=== PATIENT | female | born 1960 | race African-American/Black ===

== ENCOUNTER 2017-12-27 11:02 | Inpatient (IN) ==
[2017-12-27] MEDS ORDERED: methylPREDNISolone SOD SUC 125 MG/2 ML VIAL IV STA (11:43)
[2017-12-27] MEDS ORDERED: ALBUTEROL 2.5 MG/3 ML NEB RESP TX STA (11:43)
[2017-12-27] MEDS ORDERED: methylPREDNISolone SOD SUC 125 MG/2 ML VIAL ONE ×2 (11:59)
[2017-12-27 12:02] LABS: Basophils # 0.1 10*3/uL (0.0-0.2); Basophils % 0.5 % (0.0-0.8); Eosinophils # 0.2 10*3/uL (0.0-0.87); Eosinophils % 2.2 % (0.00-10.9); Hematocrit 36.8 VOL% (35.7-47.0); Hemoglobin 11.9 GM/DL (12.0-16.0); Immature Granulocytes % 0.4 %; Immature Granulocytes Absolute 0.04 #; Lymphocytes # 1.9 10*3/uL (1.4-4.0); Lymphocytes % 17.9 % (21.3-54.2); Mean Corpuscular HGB Conc 32.3 GM/DL (32-36); Mean Corpuscular Hemoglobin 27 PG (27-34); Mean Platelet Volume 10.1 FL (9.6-12.0); Monocytes # 0.8 10*3/uL (0.11-0.8); Monocytes % 7.8 % (1.7-12.7); Neutrophils # 7.5 10*3/uL (1.4-7.4); Neutrophils % 71.2 % (38.7-73.9); Platelet Count 322 T/CUMM (130-400); Red Blood Count 4.49 MC/CUMM (3.8-5.5); Red Cell Distribution Width 15.8 % (9.3-17.3); White Blood Count 10.6 T/CUMM (4-12)
[2017-12-27] MEDS ORDERED: IPRATROPIUM 500 MCG/2.5 ML NEB RESP TX STA (13:44)
[2017-12-27] MEDS ORDERED: DEXTROSE 50% 25 GM/50 ML VIAL IV PRN (15:51)
[2017-12-27] MEDS ORDERED: GLUCAGON 1 MG VIAL IM PRN (15:51)
[2017-12-27] MEDS ORDERED: ACETAMINOPHEN 325 MG TABLET PO PRN (15:51)
[2017-12-27 16:04] LABS: Calcium 9.7 MG/DL (8.5-10.1); Osmolality,Calculated 274.1 MOS/KG (273-304); Potassium 5.3 MMOL/L (3.5-5.1)
[2017-12-27] MEDS ORDERED: ALBUTEROL 2.5 MG/3 ML NEB RESP TX PRN (16:30)
[2017-12-27] MEDS ORDERED: ALBUTEROL 2.5 MG/3 ML NEB RESP TX SCH (17:00)
[2017-12-27] MEDS: INSULIN REGULAR 100 UNIT/ML SUBCUT SCH ×2 (17:11→20:35)
[2017-12-27] MEDS: methylPREDNISolone SOD SUC 125 MG/2 ML VIAL IV SCH ×2 (17:11→21:50)
[2017-12-27] MEDS: ONDANSETRON 4 MG/2 ML VIAL IV PRN (18:45)
[2017-12-27] MEDS: MONTELUKAST 10 MG TABLET PO SCH (20:19)
[2017-12-27] MEDS: BUDESONIDE/FORMOTEROL 160-4.5 INHALER 6 GM INH SCH (20:19)
[2017-12-27] MEDS: ALBUTEROL/IPRATROPIUM 3 ML NEB RESP TX SCH (20:48)
[2017-12-28] MEDS: ALBUTEROL/IPRATROPIUM 3 ML NEB RESP TX SCH ×4 (00:30→18:30)
[2017-12-28] MEDS: METOPROLOL TARTRATE 50 MG TABLET PO SCH ×2 (00:57→21:05)
[2017-12-28] MEDS: INSULIN GLARGINE 100 UNIT/ML SUBCUT SCH ×2 (00:58→21:05)
[2017-12-28] MEDS: methylPREDNISolone SOD SUC 125 MG/2 ML VIAL IV SCH ×4 (04:04→20:49)
[2017-12-28 06:04] LABS: Basophils % 0.1 % (0.0-0.8); Hematocrit 35.5 VOL% (35.7-47.0); Hemoglobin 11.7 GM/DL (12.0-16.0); Immature Granulocytes % 0.5 %; Immature Granulocytes Absolute 0.04 #; Lymphocytes # 0.8 10*3/uL (1.4-4.0); Lymphocytes % 9.9 % (21.3-54.2); Mean Corpuscular Hemoglobin 26 PG (27-34); Mean Platelet Volume 10.4 FL (9.6-12.0); Monocytes # 0.1 10*3/uL (0.11-0.8); Monocytes % 1.4 % (1.7-12.7); Neutrophils # 7.4 10*3/uL (1.4-7.4); Neutrophils % 88.1 % (38.7-73.9); Platelet Count 332 T/CUMM (130-400); Red Blood Count 4.44 MC/CUMM (3.8-5.5); Red Cell Distribution Width 15.9 % (9.3-17.3); White Blood Count 8.4 T/CUMM (4-12)
[2017-12-28] MEDS: LEVOTHYROXINE 200 MCG TABLET PO SCH (06:24)
[2017-12-28 06:32] LABS: Potassium 5.6 MMOL/L (3.5-5.1)
[2017-12-28] MEDS ORDERED: DILTIAZEM CD 180 MG CAPSULE PO SCH (09:00)
[2017-12-28] MEDS ORDERED: BUDESONIDE/FORMOTEROL 160-4.5 INHALER 6 GM INH SCH (09:00)
[2017-12-28] MEDS ORDERED: BENAZEPRIL 40 MG TABLET PO SCH (09:00)
[2017-12-28] MEDS: ISOSORBIDE MONONITRATE 60 MG TABLET PO SCH (09:32)
[2017-12-28] MEDS: ROFLUMILAST 500 MCG TABLET PO SCH (09:32)
[2017-12-28] MEDS: BUMETANIDE 1 MG TABLET PO SCH (09:32)
[2017-12-28] MEDS: LOSARTAN 50 MG TABLET PO SCH (09:33)
[2017-12-28] MEDS: TICAGRELOR 90 MG TABLET PO SCH ×2 (09:33→21:05)
[2017-12-28] MEDS: INSULIN REGULAR 100 UNIT/ML SUBCUT SCH ×4 (09:34→21:06)
[2017-12-28] MEDS: BUDESONIDE/FORMOTEROL 160-4.5 INHALER 6 GM INH SCH ×2 (09:37→21:09)
[2017-12-28] MEDS ORDERED: SODIUM POLYSTYRENE SULFATE 15 GM/60 ML BOTTLE PO STA (10:24)
[2017-12-28] MEDS: CEFEPIME 1,000 MG in SYRINGE 1 EACH IV SCH (10:40)
[2017-12-28] MEDS ORDERED: amLODIPine 10 MG TABLET PO ONE (11:00)
[2017-12-28] MEDS ORDERED: guaiFENesin 200 MG/10 ML UDCUP PO PRN (15:55)
[2017-12-28] MEDS: MONTELUKAST 10 MG TABLET PO SCH (21:05)
[2017-12-28] MEDS: ATORVASTATIN 20 MG TABLET PO SCH (21:05)
[2017-12-29] MEDS: ALBUTEROL/IPRATROPIUM 3 ML NEB RESP TX SCH ×4 (00:18→20:58)
[2017-12-29] MEDS: methylPREDNISolone SOD SUC 125 MG/2 ML VIAL IV SCH ×4 (02:54→20:39)
[2017-12-29] MEDS: LEVOTHYROXINE 200 MCG TABLET PO SCH (06:04)
[2017-12-29 06:16] LABS: Calcium 9.4 MG/DL (8.5-10.1); Osmolality,Calculated 287.1 MOS/KG (273-304); Potassium 4.4 MMOL/L (3.5-5.1)
[2017-12-29] MEDS ORDERED: TERBUTALINE 1 MG/1 ML VIAL SUBCUT ONE ×2 (08:00→08:01)
[2017-12-29] MEDS: INSULIN REGULAR 100 UNIT/ML SUBCUT SCH ×4 (09:03→21:35)
[2017-12-29] MEDS: CEFEPIME 1,000 MG in SYRINGE 1 EACH IV SCH (09:05)
[2017-12-29] MEDS: METOPROLOL TARTRATE 50 MG TABLET PO SCH ×2 (09:07→20:46)
[2017-12-29] MEDS: BUMETANIDE 1 MG TABLET PO SCH (09:08)
[2017-12-29] MEDS: LOSARTAN 50 MG TABLET PO SCH (09:08)
[2017-12-29] MEDS: ROFLUMILAST 500 MCG TABLET PO SCH (09:08)
[2017-12-29] MEDS: ISOSORBIDE MONONITRATE 60 MG TABLET PO SCH (09:08)
[2017-12-29] MEDS: TICAGRELOR 90 MG TABLET PO SCH ×2 (09:09→20:46)
[2017-12-29] MEDS: BUDESONIDE/FORMOTEROL 160-4.5 INHALER 6 GM INH SCH ×2 (09:28→20:49)
[2017-12-29] MEDS: MONTELUKAST 10 MG TABLET PO SCH (20:46)
[2017-12-29] MEDS: ATORVASTATIN 20 MG TABLET PO SCH (20:46)
[2017-12-29] MEDS: INSULIN GLARGINE 100 UNIT/ML SUBCUT SCH (20:47)
[2017-12-29] MEDS: ALUMINUM/MAGNES/SIMETH MAX STR 30 ML UDCUP PO PRN (21:36)
[2017-12-30] MEDS: ALBUTEROL/IPRATROPIUM 3 ML NEB RESP TX SCH ×4 (00:38→19:51)
[2017-12-30] MEDS ORDERED: hydrALAZINE 20 MG/1 ML VIAL IV PRN ×2 (00:57→05:37)
[2017-12-30] MEDS ORDERED: oxyCODONE/ACETAMINOPHEN 5-325 MG TABLET PO ONE (01:30)
[2017-12-30 01:54] LABS: Troponin I Only < 0.015 NG/ML (0.00-0.045)
[2017-12-30] MEDS: methylPREDNISolone SOD SUC 125 MG/2 ML VIAL IV SCH (03:40)
[2017-12-30] MEDS: LEVOTHYROXINE 200 MCG TABLET PO SCH (06:34)
[2017-12-30] MEDS: BUMETANIDE 1 MG TABLET PO SCH (09:00)
[2017-12-30] MEDS: ROFLUMILAST 500 MCG TABLET PO SCH (09:00)
[2017-12-30] MEDS: LOSARTAN 50 MG TABLET PO SCH (09:00)
[2017-12-30] MEDS: ISOSORBIDE MONONITRATE 60 MG TABLET PO SCH (09:01)
[2017-12-30] MEDS: TICAGRELOR 90 MG TABLET PO SCH ×2 (09:01→22:50)
[2017-12-30] MEDS: CEFEPIME 1,000 MG in SYRINGE 1 EACH IV SCH (09:02)
[2017-12-30] MEDS: INSULIN REGULAR 100 UNIT/ML SUBCUT SCH ×4 (09:02→22:53)
[2017-12-30] MEDS: METOPROLOL TARTRATE 50 MG TABLET PO SCH ×2 (09:03→22:50)
[2017-12-30] MEDS: BUDESONIDE/FORMOTEROL 160-4.5 INHALER 6 GM INH SCH ×2 (09:04→22:57)
[2017-12-30] MEDS: amLODIPine 5 MG TABLET PO SCH (12:56)
[2017-12-30] MEDS: methylPREDNISolone SOD SUC 40 MG/1 ML VIAL IV SCH ×2 (12:56→22:56)
[2017-12-30] MEDS: MONTELUKAST 10 MG TABLET PO SCH (22:50)
[2017-12-30] MEDS: INSULIN GLARGINE 100 UNIT/ML SUBCUT SCH (22:51)
[2017-12-30] MEDS: ATORVASTATIN 20 MG TABLET PO SCH (22:51)
[2017-12-31] MEDS: ALBUTEROL/IPRATROPIUM 3 ML NEB RESP TX SCH ×4 (00:53→19:07)
[2017-12-31] MEDS: methylPREDNISolone SOD SUC 40 MG/1 ML VIAL IV SCH ×3 (05:41→22:15)
[2017-12-31] MEDS: LEVOTHYROXINE 200 MCG TABLET PO SCH (07:52)
[2017-12-31 08:13] LABS: Calcium 9.5 MG/DL (8.5-10.1); Osmolality,Calculated 292.1 MOS/KG (273-304); Potassium 4.6 MMOL/L (3.5-5.1)
[2017-12-31] MEDS: BUMETANIDE 1 MG TABLET PO SCH (09:25)
[2017-12-31] MEDS: ISOSORBIDE MONONITRATE 60 MG TABLET PO SCH (09:25)
[2017-12-31] MEDS: LOSARTAN 50 MG TABLET PO SCH (09:25)
[2017-12-31] MEDS: METOPROLOL TARTRATE 50 MG TABLET PO SCH ×2 (09:25→22:13)
[2017-12-31] MEDS: INSULIN REGULAR 100 UNIT/ML SUBCUT SCH ×4 (09:26→22:17)
[2017-12-31] MEDS: ROFLUMILAST 500 MCG TABLET PO SCH (09:26)
[2017-12-31] MEDS: TICAGRELOR 90 MG TABLET PO SCH ×2 (09:26→22:13)
[2017-12-31] MEDS: CEFEPIME 1,000 MG in SYRINGE 1 EACH IV SCH (09:30)
[2017-12-31] MEDS: amLODIPine 5 MG TABLET PO SCH (09:30)
[2017-12-31] MEDS: BUDESONIDE/FORMOTEROL 160-4.5 INHALER 6 GM INH SCH ×2 (09:31→22:13)
[2017-12-31] MEDS: ALUMINUM/MAGNES/SIMETH MAX STR 30 ML UDCUP PO PRN (17:32)
[2017-12-31] MEDS: ATORVASTATIN 20 MG TABLET PO SCH (22:12)
[2017-12-31] MEDS: MONTELUKAST 10 MG TABLET PO SCH (22:13)
[2017-12-31] MEDS: ZALEPLON 5 MG CAPSULE PO PRN (22:13)
[2017-12-31] MEDS: INSULIN GLARGINE 100 UNIT/ML SUBCUT SCH (22:20)
[2018-01-01] MEDS: ALBUTEROL/IPRATROPIUM 3 ML NEB RESP TX SCH ×4 (00:30→19:12)
[2018-01-01] MEDS: methylPREDNISolone SOD SUC 40 MG/1 ML VIAL IV SCH ×3 (05:33→21:50)
[2018-01-01] MEDS: METOPROLOL TARTRATE 50 MG TABLET PO SCH ×2 (11:34→21:03)
[2018-01-01] MEDS: LEVOTHYROXINE 200 MCG TABLET PO SCH (11:34)
[2018-01-01] MEDS: LOSARTAN 50 MG TABLET PO SCH (11:34)
[2018-01-01] MEDS: ISOSORBIDE MONONITRATE 60 MG TABLET PO SCH (11:35)
[2018-01-01] MEDS: amLODIPine 5 MG TABLET PO SCH (11:35)
[2018-01-01] MEDS: ROFLUMILAST 500 MCG TABLET PO SCH (11:35)
[2018-01-01] MEDS: TICAGRELOR 90 MG TABLET PO SCH ×2 (11:35→21:03)
[2018-01-01] MEDS: INSULIN REGULAR 100 UNIT/ML SUBCUT SCH ×4 (11:35→21:08)
[2018-01-01] MEDS: BUMETANIDE 1 MG TABLET PO SCH (11:35)
[2018-01-01] MEDS: BUDESONIDE/FORMOTEROL 160-4.5 INHALER 6 GM INH SCH ×2 (11:36→21:06)
[2018-01-01] MEDS: CEFEPIME 1,000 MG in SYRINGE 1 EACH IV SCH (11:38)
[2018-01-01] MEDS: ALUMINUM/MAGNES/SIMETH MAX STR 30 ML UDCUP PO PRN (13:03)
[2018-01-01] MEDS: diphenhydrAMINE CAP 25 MG CAPSULE PO SCH ×2 (13:03→21:02)
[2018-01-01] MEDS: ATORVASTATIN 20 MG TABLET PO SCH (21:03)
[2018-01-01] MEDS: MONTELUKAST 10 MG TABLET PO SCH (21:04)
[2018-01-01] MEDS: ZALEPLON 5 MG CAPSULE PO PRN (21:08)
[2018-01-01] MEDS: INSULIN GLARGINE 100 UNIT/ML SUBCUT SCH (21:09)
[2018-01-02] MEDS: ALBUTEROL/IPRATROPIUM 3 ML NEB RESP TX SCH ×4 (00:45→19:18)
[2018-01-02] MEDS: diphenhydrAMINE CAP 25 MG CAPSULE PO SCH ×3 (06:07→21:49)
[2018-01-02] MEDS: LEVOTHYROXINE 200 MCG TABLET PO SCH (06:07)
[2018-01-02 06:40] LABS: Calcium 9.1 MG/DL (8.5-10.1); Osmolality,Calculated 287.5 MOS/KG (273-304); Potassium 4.6 MMOL/L (3.5-5.1)
[2018-01-02] MEDS: INSULIN REGULAR 100 UNIT/ML SUBCUT SCH ×4 (09:46→21:49)
[2018-01-02] MEDS: ISOSORBIDE MONONITRATE 60 MG TABLET PO SCH (09:47)
[2018-01-02] MEDS: amLODIPine 5 MG TABLET PO SCH (09:47)
[2018-01-02] MEDS: ROFLUMILAST 500 MCG TABLET PO SCH (09:47)
[2018-01-02] MEDS: LOSARTAN 50 MG TABLET PO SCH (09:47)
[2018-01-02] MEDS: METOPROLOL TARTRATE 50 MG TABLET PO SCH ×2 (09:47→21:47)
[2018-01-02] MEDS: BUMETANIDE 1 MG TABLET PO SCH (09:47)
[2018-01-02] MEDS: methylPREDNISolone SOD SUC 40 MG/1 ML VIAL IV SCH ×2 (09:48→11:00)
[2018-01-02] MEDS: TICAGRELOR 90 MG TABLET PO SCH ×2 (09:48→21:47)
[2018-01-02] MEDS: CEFEPIME 1,000 MG in SYRINGE 1 EACH IV SCH (09:50)
[2018-01-02] MEDS: BUDESONIDE/FORMOTEROL 160-4.5 INHALER 6 GM INH SCH ×2 (09:51→21:54)
[2018-01-02] MEDS: ONDANSETRON 4 MG/2 ML VIAL IV PRN ×2 (14:53→21:52)
[2018-01-02] MEDS: MONTELUKAST 10 MG TABLET PO SCH (21:47)
[2018-01-02] MEDS: ATORVASTATIN 20 MG TABLET PO SCH (21:48)
[2018-01-02] MEDS: ZALEPLON 5 MG CAPSULE PO PRN (21:48)
[2018-01-02] MEDS: DOCUSATE SODIUM 100 MG CAPSULE PO PRN (21:48)
[2018-01-02] MEDS: INSULIN GLARGINE 100 UNIT/ML SUBCUT SCH (21:50)
[2018-01-03] MEDS: ALBUTEROL/IPRATROPIUM 3 ML NEB RESP TX SCH ×4 (00:07→19:37)
[2018-01-03] MEDS: LEVOTHYROXINE 200 MCG TABLET PO SCH (06:08)
[2018-01-03] MEDS: diphenhydrAMINE CAP 25 MG CAPSULE PO SCH ×3 (06:08→21:11)
[2018-01-03] MEDS: INSULIN REGULAR 100 UNIT/ML SUBCUT SCH ×4 (07:35→21:04)
[2018-01-03] MEDS: DOCUSATE SODIUM 100 MG CAPSULE PO PRN ×2 (09:33→20:44)
[2018-01-03] MEDS: METOPROLOL TARTRATE 50 MG TABLET PO SCH ×2 (09:33→20:45)
[2018-01-03] MEDS: ISOSORBIDE MONONITRATE 60 MG TABLET PO SCH (09:33)
[2018-01-03] MEDS: LOSARTAN 50 MG TABLET PO SCH (09:33)
[2018-01-03] MEDS: ROFLUMILAST 500 MCG TABLET PO SCH (09:33)
[2018-01-03] MEDS: TICAGRELOR 90 MG TABLET PO SCH ×2 (09:33→20:46)
[2018-01-03] MEDS: BUMETANIDE 1 MG TABLET PO SCH (09:33)
[2018-01-03] MEDS: amLODIPine 5 MG TABLET PO SCH (09:34)
[2018-01-03] MEDS: methylPREDNISolone SOD SUC 40 MG/1 ML VIAL IV SCH (09:34)
[2018-01-03] MEDS: CEFEPIME 1,000 MG in SYRINGE 1 EACH IV SCH (09:36)
[2018-01-03] MEDS: BUDESONIDE/FORMOTEROL 160-4.5 INHALER 6 GM INH SCH ×2 (13:49→20:46)
[2018-01-03] MEDS: ATORVASTATIN 20 MG TABLET PO SCH (20:44)
[2018-01-03] MEDS: ZALEPLON 5 MG CAPSULE PO PRN (20:44)
[2018-01-03] MEDS: MONTELUKAST 10 MG TABLET PO SCH (20:45)
[2018-01-03] MEDS: INSULIN GLARGINE 100 UNIT/ML SUBCUT SCH (21:05)
[2018-01-03] MEDS: ALUMINUM/MAGNES/SIMETH MAX STR 30 ML UDCUP PO PRN (21:09)
[2018-01-04] MEDS: ALBUTEROL/IPRATROPIUM 3 ML NEB RESP TX SCH ×2 (01:12→07:31)
[2018-01-04 05:36] LABS: Calcium 8.2 MG/DL (8.5-10.1); Osmolality,Calculated 288.1 MOS/KG (273-304); Potassium 4.2 MMOL/L (3.5-5.1)
[2018-01-04] MEDS: LEVOTHYROXINE 200 MCG TABLET PO SCH (06:13)
[2018-01-04] MEDS: diphenhydrAMINE CAP 25 MG CAPSULE PO SCH (06:14)
[2018-01-04] MEDS: INSULIN REGULAR 100 UNIT/ML SUBCUT SCH ×2 (08:04→11:39)
[2018-01-04] MEDS: amLODIPine 5 MG TABLET PO SCH (08:35)
[2018-01-04] MEDS: ISOSORBIDE MONONITRATE 60 MG TABLET PO SCH (08:35)
[2018-01-04] MEDS: ROFLUMILAST 500 MCG TABLET PO SCH (08:35)
[2018-01-04] MEDS: TICAGRELOR 90 MG TABLET PO SCH (08:35)
[2018-01-04] MEDS: LOSARTAN 50 MG TABLET PO SCH (08:35)
[2018-01-04] MEDS: DOCUSATE SODIUM 100 MG CAPSULE PO PRN (08:36)
[2018-01-04] MEDS: BUMETANIDE 1 MG TABLET PO SCH (08:36)
[2018-01-04] MEDS: METOPROLOL TARTRATE 50 MG TABLET PO SCH (08:36)
[2018-01-04] MEDS: CEFEPIME 1,000 MG in SYRINGE 1 EACH IV SCH (08:36)
[2018-01-04] MEDS: BUDESONIDE/FORMOTEROL 160-4.5 INHALER 6 GM INH SCH (08:44)
[2018-01-04] MEDS ORDERED: predniSONE 20 MG TABLET PO SCH (09:00)
[2018-01-04] MEDS ORDERED: POLYETHYLENE GLYCOL POWDER 17 GM PACK PO SCH (09:00)
[2018-01-04 11:51] VITALS: BP 136/55
== END 2018-01-04 13:30 | disposition home or self-care (01) | DRG 192 ==
LOC: N.ED 11:02 → N.EDINP 15:02 → SUATTDRO 15:02 → N.2E 15:53
PROVIDERS: ADMIT Family Medicine; ATTEND Hospitalist

== ENCOUNTER 2019-02-28 18:43 | Inpatient (IN) ==
[2019-02-28 20:45] LABS: Basophils # 0.1 10*3/uL (0.0-0.2); Basophils % 0.7 % (0.0-0.8); Eosinophils # 1.1 10*3/uL (0.0-0.87); Hemoglobin 13.9 GM/DL (12.0-16.0); Immature Granulocytes % 0.6 %; Immature Granulocytes Absolute 0.09 #; Lymphocytes # 3.2 10*3/uL (1.4-4.0); Lymphocytes % 20.9 % (21.3-54.2); Mean Corpuscular HGB Conc 32.3 GM/DL (32-36); Mean Corpuscular Hemoglobin 28 PG (27-34); Mean Platelet Volume 9.9 FL (9.6-12.0); Monocytes # 0.8 10*3/uL (0.11-0.8); Monocytes % 5.2 % (1.7-12.7); Neutrophils % 65.6 % (38.7-73.9); Platelet Count 380 T/CUMM (130-400); Red Blood Count 4.94 MC/CUMM (3.8-5.5); White Blood Count 15.2 T/CUMM (4-12)
[2019-02-28 21:08] LABS: Albumin 4.1 G/DL (3.4-5.0); Bilirubin,Total 0.6 MG/DL (0.2-1.0); Osmolality,Calculated 284.7 MOS/KG (273-304); Potassium 4.7 MMOL/L (3.5-5.1); Total Protein 7.7 G/DL (6.4-8.3)
[2019-02-28] MEDS ORDERED: methylPREDNISolone SOD SUC 125 MG/2 ML VIAL IV STA (21:13)
[2019-02-28] MEDS ORDERED: hydrALAZINE 20 MG/1 ML VIAL IV STA (21:13)
[2019-02-28] MEDS ORDERED: ALBUTEROL/IPRATROPIUM 3 ML NEB RESP TX STA ×2 (21:45→22:41)
[2019-02-28] MEDS ORDERED: niCARdipine 25 MG/10 ML VIAL IV ONE (23:41)
[2019-03-01 00:10] LABS: ABG HCO3 20.2 MMOL/L (20-26); ABG Oxygen Saturation 97.3 % (95-100); ABG PCO2 31.4 MM HG (35-48); ABG PH 7.427 (7.35-7.45); ABG PO2 98.4 MM HG (80-95); ABG TCO2 21.2 MMOL/L (23-27); Allen Test Positive
[2019-03-01] MEDS ORDERED: ALBUTEROL 2.5 MG/3 ML NEB RESP TX PRN (00:12)
[2019-03-01] MEDS ORDERED: DEXTROSE 50% 25 GM/50 ML SYRINGE IV PRN (00:22)
[2019-03-01] MEDS ORDERED: BISACODYL 5 MG TABLET PO PRN (00:22)
[2019-03-01] MEDS ORDERED: NICOTINE 21 MG/24 HR PATCH TRANSDERM PRN (00:22)
[2019-03-01] MEDS ORDERED: MORPHINE 4 MG/1 ML VIAL IV PRN (00:22)
[2019-03-01] MEDS ORDERED: ACETAMINOPHEN 325 MG TABLET PO PRN (00:22)
[2019-03-01] MEDS ORDERED: GLUCAGON 1 MG VIAL IM PRN (00:22)
[2019-03-01] MEDS ORDERED: guaiFENesin/DM ER 600-30 MG TABLET PO PRN (00:22)
[2019-03-01] MEDS ORDERED: ALBUTEROL/IPRATROPIUM 3 ML NEB RESP TX SCH (01:00)
[2019-03-01] MEDS: ALBUTEROL/IPRATROPIUM 3 ML NEB RESP TX SCH ×4 (01:24→19:37)
[2019-03-01] MEDS: DOXYCYCLINE HYCLATE 100 MG CAPSULE PO SCH ×3 (01:51→20:45)
[2019-03-01] MEDS: PANTOPRAZOLE 40 MG VIAL IV SCH (01:52)
[2019-03-01] MEDS: methylPREDNISolone SOD SUC 40 MG/1 ML VIAL IV SCH ×3 (01:54→17:38)
[2019-03-01] MEDS: niCARdipine INJ 25 MG in SODIUM CHLORIDE 0.9% 240 ML IV PRN ×2 (02:48→08:33)
[2019-03-01] MEDS: TICAGRELOR 90 MG TABLET PO SCH ×3 (02:50→20:45)
[2019-03-01 04:45] LABS: Apearance,Urine CLOUDY (Clear); Bacteria,Urine Occasional /HPF (Few); Bilirubin,Urine Negative (Negative); Blood, Urine Small mg/dL (Negative); Glucose,Urine (UA) >=500 mg/dL (Negative); Ketones,Urine Negative (Negative); Mucus,Urine Occasional /LPF (Occasional); Nitrite,Urine Negative (Negative); Protein,Urine 100 MG/DL; RBC,Urine <1 /HPF (0-4); Squamous Epithelial Cell,Urine Occasional /HPF (0-10); Urine Color Yellow (Yellow); Urine Specific Gravity 1.016 (1.001-1.035); Urine Urobilinogen < 2.0 EU/DL (0.2-1.0); WBC,Urine 2 /HPF (0-6)
[2019-03-01 04:50] LABS: Basophils # 0.1 10*3/uL (0.0-0.2); Basophils % 0.3 % (0.0-0.8); Eosinophils % 0.2 % (0.00-10.9); Hematocrit 40.8 VOL% (35.7-47.0); Hemoglobin 13.6 GM/DL (12.0-16.0); Immature Granulocytes % 0.4 %; Immature Granulocytes Absolute 0.07 #; Lymphocytes # 0.9 10*3/uL (1.4-4.0); Lymphocytes % 5.4 % (21.3-54.2); Mean Corpuscular HGB Conc 33.3 GM/DL (32-36); Mean Corpuscular Hemoglobin 28 PG (27-34); Mean Corpuscular Volume 85.2 FL (87-102); Mean Platelet Volume 10.7 FL (9.6-12.0); Monocytes # 0.1 10*3/uL (0.11-0.8); Monocytes % 0.5 % (1.7-12.7); Neutrophils # 16.2 10*3/uL (1.4-7.4); Neutrophils % 93.2 % (38.7-73.9); Platelet Count 355 T/CUMM (130-400); Red Blood Count 4.79 MC/CUMM (3.8-5.5); White Blood Count 17.3 T/CUMM (4-12)
[2019-03-01 05:48] LABS: Lymphocytes 3 % (20-55); Segmented Neutrophils 96 % (50-85); Total Cells Counted 100
[2019-03-01 05:49] LABS: Anisocytosis Slight; Platelet Estimate Adequate
[2019-03-01] MEDS: LEVOTHYROXINE 175 MCG TABLET PO SCH (06:03)
[2019-03-01] MEDS: METOPROLOL TARTRATE 50 MG TABLET PO SCH ×2 (08:11→20:45)
[2019-03-01] MEDS: ROFLUMILAST 500 MCG TABLET PO SCH (08:11)
[2019-03-01] MEDS: BUMETANIDE 1 MG TABLET PO SCH (08:12)
[2019-03-01] MEDS: ISOSORBIDE MONONITRATE 60 MG TABLET PO SCH (08:12)
[2019-03-01] MEDS: amLODIPine 10 MG TABLET PO SCH (08:12)
[2019-03-01] MEDS: ASPIRIN EC 81 MG TABLET PO SCH (08:12)
[2019-03-01] MEDS: GABAPENTIN 600 MG TABLET PO SCH ×2 (08:14→20:46)
[2019-03-01] MEDS: INSULIN REGULAR 100 UNIT/ML SUBCUT SCH ×4 (08:17→20:51)
[2019-03-01] MEDS ORDERED: NON-FORMULARY MEDICATION (Budesonide/Formoterol 160-4.5 [Symbicort 160-4.5] 2 PUFF) INH SCH (09:00)
[2019-03-01] MEDS ORDERED: LOSARTAN 50 MG TABLET PO SCH (09:00)
[2019-03-01] MEDS ORDERED: PANTOPRAZOLE 40 MG VIAL IV SCH (09:00)
[2019-03-01] MEDS: niCARdipine INJ 50 MG in SODIUM CHLORIDE 0.9% 480 ML IV PRN ×2 (11:40→17:22)
[2019-03-01] MEDS: ONDANSETRON 4 MG/2 ML VIAL IV PRN ×2 (11:47→20:51)
[2019-03-01] MEDS ORDERED: HydrOXYzine PAMOATE 25 MG CAPSULE PO SCH (14:30)
[2019-03-01] MEDS: MONTELUKAST 10 MG TABLET PO SCH ×2 (14:39→20:45)
[2019-03-01] MEDS ORDERED: NON-FORMULARY MEDICATION (Canagliflozin [Invokana] 300 MG) PO SCH (16:45)
[2019-03-01] MEDS: diphenhydrAMINE CAP 25 MG CAPSULE PO PRN (17:49)
[2019-03-01] MEDS: INSULIN GLARGINE 100 UNIT/ML SUBCUT SCH (20:46)
[2019-03-01] MEDS: ATORVASTATIN 40 MG TABLET PO SCH (20:46)
[2019-03-02] MEDS: niCARdipine INJ 50 MG in SODIUM CHLORIDE 0.9% 480 ML IV PRN (01:00)
[2019-03-02] MEDS: ALBUTEROL/IPRATROPIUM 3 ML NEB RESP TX SCH ×4 (01:01→19:13)
[2019-03-02] MEDS: PANTOPRAZOLE 40 MG VIAL IV SCH (01:05)
[2019-03-02] MEDS: methylPREDNISolone SOD SUC 40 MG/1 ML VIAL IV SCH ×2 (01:05→12:30)
[2019-03-02] MEDS: diphenhydrAMINE CAP 25 MG CAPSULE PO PRN ×3 (01:06→21:02)
[2019-03-02] MEDS: INSULIN REGULAR 100 UNIT/ML SUBCUT SCH ×6 (01:13→20:30)
[2019-03-02 05:52] LABS: Basophils % 0.2 % (0.0-0.8); Hematocrit 38.7 VOL% (35.7-47.0); Hemoglobin 12.3 GM/DL (12.0-16.0); Lymphocytes # 1.1 10*3/uL (1.4-4.0); Lymphocytes % 5.6 % (21.3-54.2); Mean Corpuscular HGB Conc 31.8 GM/DL (32-36); Mean Corpuscular Hemoglobin 28 PG (27-34); Mean Corpuscular Volume 87.8 FL (87-102); Mean Platelet Volume 10.2 FL (9.6-12.0); Monocytes # 0.3 10*3/uL (0.11-0.8); Monocytes % 1.6 % (1.7-12.7); Neutrophils % 91.6 % (38.7-73.9); Platelet Count 368 T/CUMM (130-400); Red Blood Count 4.41 MC/CUMM (3.8-5.5); Red Cell Distribution Width 14.4 % (9.3-17.3); White Blood Count 19.7 T/CUMM (4-12)
[2019-03-02 06:16] LABS: Hypochromasia 1+; Lymphocytes 6 % (20-55); Ovalocytes Slight; Platelet Estimate Adequate; Segmented Neutrophils 93 % (50-85); Total Cells Counted 100
[2019-03-02 06:17] LABS: Calcium 8.4 MG/DL (8.5-10.1); Osmolality,Calculated 295.7 MOS/KG (273-304); Potassium 5.2 MMOL/L (3.5-5.1)
[2019-03-02] MEDS: LEVOTHYROXINE 175 MCG TABLET PO SCH (06:28)
[2019-03-02] MEDS: ROFLUMILAST 500 MCG TABLET PO SCH (08:06)
[2019-03-02] MEDS: MONTELUKAST 10 MG TABLET PO SCH ×2 (08:06→20:31)
[2019-03-02] MEDS: DOXYCYCLINE HYCLATE 100 MG CAPSULE PO SCH ×2 (08:07→20:31)
[2019-03-02] MEDS: ASPIRIN EC 81 MG TABLET PO SCH (08:07)
[2019-03-02] MEDS: BUMETANIDE 1 MG TABLET PO SCH (08:07)
[2019-03-02] MEDS: TICAGRELOR 90 MG TABLET PO SCH ×2 (08:07→20:31)
[2019-03-02] MEDS: ISOSORBIDE MONONITRATE 60 MG TABLET PO SCH (08:07)
[2019-03-02] MEDS: GABAPENTIN 600 MG TABLET PO SCH ×2 (08:07→22:41)
[2019-03-02] MEDS: amLODIPine 10 MG TABLET PO SCH (08:07)
[2019-03-02] MEDS: METOPROLOL TARTRATE 50 MG TABLET PO SCH ×2 (09:40→20:31)
[2019-03-02] MEDS: PANTOPRAZOLE 40 MG TABLET PO SCH (10:03)
[2019-03-02] MEDS: INSULIN GLARGINE 100 UNIT/ML SUBCUT SCH (20:30)
[2019-03-02] MEDS: ATORVASTATIN 40 MG TABLET PO SCH (20:32)
[2019-03-03] MEDS: ALBUTEROL/IPRATROPIUM 3 ML NEB RESP TX SCH ×4 (00:29→19:10)
[2019-03-03] MEDS: methylPREDNISolone SOD SUC 40 MG/1 ML VIAL IV SCH ×2 (01:10→12:23)
[2019-03-03] MEDS: INSULIN REGULAR 100 UNIT/ML SUBCUT SCH ×6 (01:18→20:24)
[2019-03-03 06:12] LABS: Calcium 8.5 MG/DL (8.5-10.1); Osmolality,Calculated 293.8 MOS/KG (273-304); Potassium 4.7 MMOL/L (3.5-5.1)
[2019-03-03] MEDS: LEVOTHYROXINE 175 MCG TABLET PO SCH (06:12)
[2019-03-03] MEDS: TICAGRELOR 90 MG TABLET PO SCH ×2 (09:00→20:24)
[2019-03-03] MEDS: ROFLUMILAST 500 MCG TABLET PO SCH (09:00)
[2019-03-03] MEDS: GABAPENTIN 600 MG TABLET PO SCH ×2 (09:00→20:24)
[2019-03-03] MEDS: ISOSORBIDE MONONITRATE 60 MG TABLET PO SCH (09:00)
[2019-03-03] MEDS: METOPROLOL TARTRATE 50 MG TABLET PO SCH ×2 (09:00→20:25)
[2019-03-03] MEDS: amLODIPine 10 MG TABLET PO SCH (09:00)
[2019-03-03] MEDS: BUMETANIDE 1 MG TABLET PO SCH (09:00)
[2019-03-03] MEDS: ASPIRIN EC 81 MG TABLET PO SCH (09:00)
[2019-03-03] MEDS: PANTOPRAZOLE 40 MG TABLET PO SCH (09:00)
[2019-03-03] MEDS: DOXYCYCLINE HYCLATE 100 MG CAPSULE PO SCH ×2 (09:00→20:24)
[2019-03-03] MEDS: MONTELUKAST 10 MG TABLET PO SCH ×2 (09:00→20:24)
[2019-03-03] MEDS: BUDESONIDE 0.5 MG/2 ML NEB RESP TX SCH ×2 (13:28→19:10)
[2019-03-03] MEDS: INSULIN GLARGINE 100 UNIT/ML SUBCUT SCH (20:24)
[2019-03-03] MEDS: ATORVASTATIN 40 MG TABLET PO SCH (20:24)
[2019-03-04] MEDS: INSULIN REGULAR 100 UNIT/ML SUBCUT SCH ×6 (00:56→20:55)
[2019-03-04] MEDS: methylPREDNISolone SOD SUC 40 MG/1 ML VIAL IV SCH ×2 (00:57→14:52)
[2019-03-04] MEDS: ALBUTEROL/IPRATROPIUM 3 ML NEB RESP TX SCH ×4 (01:03→20:20)
[2019-03-04] MEDS ORDERED: NITROGLYCERIN SL 0.4 MG TABLET SL ONE (04:01)
[2019-03-04] MEDS: ONDANSETRON 4 MG/2 ML VIAL IV PRN (04:06)
[2019-03-04 04:28] LABS: Basophils # 0.1 10*3/uL (0.0-0.2); Basophils % 0.3 % (0.0-0.8); Hematocrit 39.3 VOL% (35.7-47.0); Hemoglobin 12.8 GM/DL (12.0-16.0); Immature Granulocytes % 2.1 %; Immature Granulocytes Absolute 0.38 #; Lymphocytes # 1.3 10*3/uL (1.4-4.0); Mean Corpuscular HGB Conc 32.6 GM/DL (32-36); Mean Corpuscular Hemoglobin 28 PG (27-34); Mean Corpuscular Volume 85.6 FL (87-102); Monocytes # 0.6 10*3/uL (0.11-0.8); Monocytes % 3.4 % (1.7-12.7); Neutrophils # 15.6 10*3/uL (1.4-7.4); Neutrophils % 87.2 % (38.7-73.9); Platelet Count 328 T/CUMM (130-400); Red Blood Count 4.59 MC/CUMM (3.8-5.5); Red Cell Distribution Width 13.7 % (9.3-17.3); White Blood Count 17.9 T/CUMM (4-12)
[2019-03-04 04:41] LABS: Calcium 8.7 MG/DL (8.5-10.1); Osmolality,Calculated 291.2 MOS/KG (273-304); Potassium 4.5 MMOL/L (3.5-5.1)
[2019-03-04] MEDS: LEVOTHYROXINE 175 MCG TABLET PO SCH (05:31)
[2019-03-04] MEDS: BUDESONIDE 0.5 MG/2 ML NEB RESP TX SCH (07:23)
[2019-03-04] MEDS: TICAGRELOR 90 MG TABLET PO SCH ×2 (08:44→20:56)
[2019-03-04] MEDS: MONTELUKAST 10 MG TABLET PO SCH ×2 (08:44→20:56)
[2019-03-04] MEDS: METOPROLOL TARTRATE 50 MG TABLET PO SCH ×2 (08:44→20:56)
[2019-03-04] MEDS: BUMETANIDE 1 MG TABLET PO SCH (08:44)
[2019-03-04] MEDS: DOXYCYCLINE HYCLATE 100 MG CAPSULE PO SCH ×2 (08:44→20:56)
[2019-03-04] MEDS: ISOSORBIDE MONONITRATE 60 MG TABLET PO SCH (08:44)
[2019-03-04] MEDS: ASPIRIN EC 81 MG TABLET PO SCH (08:44)
[2019-03-04] MEDS: ROFLUMILAST 500 MCG TABLET PO SCH (08:44)
[2019-03-04] MEDS: amLODIPine 10 MG TABLET PO SCH (08:44)
[2019-03-04] MEDS: PANTOPRAZOLE 40 MG TABLET PO SCH (08:44)
[2019-03-04] MEDS: GABAPENTIN 600 MG TABLET PO SCH ×2 (08:44→20:56)
[2019-03-04] MEDS ORDERED: ONDANSETRON ODT 4 MG TABLET PO PRN (15:08)
[2019-03-04] MEDS: ATORVASTATIN 40 MG TABLET PO SCH (20:56)
[2019-03-04] MEDS: INSULIN GLARGINE 100 UNIT/ML SUBCUT SCH (20:56)
[2019-03-04] MEDS: predniSONE 20 MG TABLET PO SCH (20:56)
[2019-03-04] MEDS ORDERED: BUDESONIDE/FORMOTEROL 160-4.5 INHALER 6 GM INH SCH (21:00)
[2019-03-05] MEDS: INSULIN REGULAR 100 UNIT/ML SUBCUT SCH ×4 (01:04→12:03)
[2019-03-05] MEDS: ALBUTEROL/IPRATROPIUM 3 ML NEB RESP TX SCH ×2 (02:05→07:38)
[2019-03-05] MEDS: LEVOTHYROXINE 175 MCG TABLET PO SCH (05:29)
[2019-03-05] MEDS: ISOSORBIDE MONONITRATE 60 MG TABLET PO SCH (09:19)
[2019-03-05] MEDS: predniSONE 20 MG TABLET PO SCH (09:19)
[2019-03-05] MEDS: ROFLUMILAST 500 MCG TABLET PO SCH (09:19)
[2019-03-05] MEDS: METOPROLOL TARTRATE 50 MG TABLET PO SCH (09:19)
[2019-03-05] MEDS: amLODIPine 10 MG TABLET PO SCH (09:19)
[2019-03-05] MEDS: MONTELUKAST 10 MG TABLET PO SCH (09:20)
[2019-03-05] MEDS: DOXYCYCLINE HYCLATE 100 MG CAPSULE PO SCH (09:20)
[2019-03-05] MEDS: BUMETANIDE 1 MG TABLET PO SCH (09:20)
[2019-03-05] MEDS: ASPIRIN EC 81 MG TABLET PO SCH (09:20)
[2019-03-05] MEDS: GABAPENTIN 600 MG TABLET PO SCH (09:20)
[2019-03-05] MEDS: TICAGRELOR 90 MG TABLET PO SCH (09:21)
[2019-03-05] MEDS: PANTOPRAZOLE 40 MG TABLET PO SCH (09:21)
[2019-03-05 12:04] VITALS: BP 147/77
== END 2019-03-05 12:50 | disposition home or self-care (01) | DRG 189 ==
LOC: N.ED 18:43 → N.EDINP 03-01 00:12 → SUATTDRO 03-01 00:12 → N.CC 03-01 01:50 → N.5E 03-02 16:47
PROVIDERS: ADMIT Internal Medicine; ATTEND Internal Medicine

== ENCOUNTER 2020-05-30 20:46 | Inpatient (IN) ==
[2020-05-30] MEDS ORDERED: ONDANSETRON 4 MG/2 ML VIAL IV STA (21:50)
[2020-05-30] MEDS ORDERED: FUROSEMIDE 40 MG/4 ML VIAL IV STA (21:50)
[2020-05-30] MEDS ORDERED: methylPREDNISolone SOD SUC 125 MG/2 ML VIAL IV STA (21:50)
[2020-05-30] MEDS ORDERED: AZITHROMYCIN INJ 500 MG in SODIUM CHLORIDE 0.9% 250 ML IV STA (21:50)
[2020-05-30] MEDS ORDERED: hydrALAZINE 20 MG/1 ML VIAL IV STA (22:04)
[2020-05-30] MEDS: ALBUTEROL NEB SOLN 5 MG/ML 20 ML/BOTTLE CONT NEB SCH (22:04)
[2020-05-30 22:52] LABS: Basophils % 0.2 % (0.0-0.8); Hematocrit 44.6 VOL% (35.7-47.0); Hemoglobin 14.8 GM/DL (12.0-16.0); Immature Granulocytes % 0.4 %; Immature Granulocytes Absolute 0.05 #; Lymphocytes # 1.1 10*3/uL (1.4-4.0); Lymphocytes % 9.1 % (21.3-54.2); Mean Corpuscular HGB Conc 33.2 GM/DL (32-36); Mean Platelet Volume 9.7 FL (9.6-12.0); Monocytes % 7.5 % (1.7-12.7); Neutrophils % 82.8 % (38.7-73.9); Platelet Count 243 T/CUMM (130-400); Red Blood Count 5.25 MC/CUMM (3.8-5.5); Red Cell Distribution Width 14.6 % (9.3-17.3); White Blood Count 11.9 T/CUMM (4-12)
[2020-05-30 22:56] LABS: Allen Test Positive
[2020-05-30 22:57] LABS: ABG HCO3 21.1 MMOL/L (20-26); ABG Oxygen Saturation 94.1 % (95-100); ABG PCO2 28.6 MM HG (35-48); ABG PH 7.429 (7.35-7.45); ABG PO2 72.9 MM HG (80-95); ABG TCO2 16.1 MMOL/L (23-27)
[2020-05-30 23:10] LABS: PT Patient Result 10.7 SECS (9.8-11.9)
[2020-05-30 23:45] LABS: Apearance,Urine CLEAR (Clear); Bacteria,Urine Many /HPF (Few); Bilirubin,Urine Negative (Negative); Blood, Urine Negative (Negative); Glucose,Urine (UA) >=500 mg/dL (Negative); Ketones,Urine 5 mg/dL (Negative); Nitrite,Urine Negative (Negative); Protein,Urine >=500 MG/DL; RBC,Urine 2 /HPF (0-4); Squamous Epithelial Cell,Urine Occasional /HPF (0-10); Urine Color Yellow (Yellow); Urine Specific Gravity 1.026 (1.001-1.035); Urine Urobilinogen < 2.0 EU/DL (0.2-1.0); WBC,Urine <1 /HPF (0-6)
[2020-05-30 23:52] LABS: Albumin 3.3 G/DL (3.4-5.0); Bilirubin,Total 0.6 MG/DL (0.2-1.0); Calcium 8.9 MG/DL (8.5-10.1); Ferritin 296.3 ng/ml (8-252); Osmolality,Calculated 283.7 MOS/KG (273-304); Total Protein 8.3 G/DL (6.4-8.3)
[2020-05-31] MEDS: ALBUTEROL NEB SOLN 5 MG/ML 20 ML/BOTTLE CONT NEB SCH (00:26)
[2020-05-31] MEDS ORDERED: cloNIDine 0.1 MG TABLET PO STA (01:00)
[2020-05-31] MEDS ORDERED: cloNIDine 0.1 MG TABLET ONE (01:02)
[2020-05-31] MEDS ORDERED: diphenhydrAMINE CAP 25 MG CAPSULE ONE (01:06)
[2020-05-31] MEDS ORDERED: ACETAMINOPHEN 500 MG TABLET PO STA (01:07)
[2020-05-31] MEDS ORDERED: ACETAMINOPHEN 500 MG TABLET ONE ×2 (01:07)
[2020-05-31] MEDS ORDERED: diphenhydrAMINE CAP 25 MG CAPSULE PO STA (01:07)
[2020-05-31] MEDS ORDERED: GLUCAGON 1 MG VIAL IM PRN (01:22)
[2020-05-31] MEDS ORDERED: DEXTROSE 50% 25 GM/50 ML VIAL IV PRN (01:22)
[2020-05-31] MEDS ORDERED: DOCUSATE SODIUM 100 MG CAPSULE PO PRN (01:57)
[2020-05-31] MEDS ORDERED: traMADol 50 MG TABLET PO PRN (02:14)
[2020-05-31] MEDS ORDERED: CYCLOBENZAPRINE 10 MG TABLET PO PRN (02:14)
[2020-05-31] MEDS ORDERED: predniSONE 10 MG TABLET PO PRN (02:14)
[2020-05-31] MEDS: cefTRIAXone 1,000 MG in SYRINGE 1 EACH IV SCH (03:57)
[2020-05-31] MEDS: ALBUTEROL INHALER 18 GM INH SCH ×5 (03:58→20:00)
[2020-05-31] MEDS: LEVOTHYROXINE 150 MCG TABLET PO SCH (07:15)
[2020-05-31] MEDS: INSULIN REGULAR 100 UNIT/ML SUBCUT SCH ×2 (07:29→10:32)
[2020-05-31] MEDS ORDERED: Canagliflozin [Invokana] 300 MG PO SCH (07:30)
[2020-05-31] MEDS ORDERED: Fluticasone Furoate-Vilanterol [Breo Ellipta] INH SCH (09:00)
[2020-05-31] MEDS: ASPIRIN EC 81 MG TABLET PO SCH (09:28)
[2020-05-31] MEDS: INSULIN LISPRO 100 UNIT/ML SUBCUT SCH ×5 (09:28→21:50)
[2020-05-31] MEDS: TICAGRELOR 90 MG TABLET PO SCH ×2 (09:28→21:50)
[2020-05-31] MEDS: PANTOPRAZOLE 40 MG TABLET PO SCH (09:29)
[2020-05-31] MEDS: AZITHROMYCIN 250 MG TABLET PO SCH (09:29)
[2020-05-31] MEDS: ISOSORBIDE MONONITRATE 60 MG TABLET PO SCH (09:29)
[2020-05-31] MEDS: BUMETANIDE 1 MG TABLET PO SCH (09:29)
[2020-05-31] MEDS: GABAPENTIN 600 MG TABLET PO SCH ×2 (09:29→22:28)
[2020-05-31] MEDS: ENOXAPARIN 40 MG/0.4 ML SYRINGE SUBCUT SCH (09:29)
[2020-05-31] MEDS: METOPROLOL TARTRATE 50 MG TABLET PO SCH ×2 (09:29→22:28)
[2020-05-31] MEDS: amLODIPine 10 MG TABLET PO SCH (09:29)
[2020-05-31 10:39] LABS: Basophils % 0.1 % (0.0-0.8); Hematocrit 44.6 VOL% (35.7-47.0); Hemoglobin 14.6 GM/DL (12.0-16.0); Immature Granulocytes % 0.6 %; Immature Granulocytes Absolute 0.05 #; Lymphocytes # 0.6 10*3/uL (1.4-4.0); Lymphocytes % 6.8 % (21.3-54.2); Mean Corpuscular HGB Conc 32.7 GM/DL (32-36); Mean Corpuscular Volume 85.4 FL (87-102); Mean Platelet Volume 10.2 FL (9.6-12.0); Monocytes % 1.6 % (1.7-12.7); Neutrophils % 90.9 % (38.7-73.9); Platelet Count 245 T/CUMM (130-400); Red Blood Count 5.22 MC/CUMM (3.8-5.5); Red Cell Distribution Width 14.7 % (9.3-17.3); White Blood Count 8.8 T/CUMM (4-12)
[2020-05-31 10:56] LABS: Calcium 8.7 MG/DL (8.5-10.1); Osmolality,Calculated 286.2 MOS/KG (273-304)
[2020-05-31 11:00] LABS: Band Neutrophils 10 % (0-10); Lymphocytes 8 % (20-55); Platelet Estimate Normal; Segmented Neutrophils 81 % (50-85); Total Cells Counted 100
[2020-05-31 11:01] LABS: Anisocytosis 1+; Macrocytosis Slight
[2020-05-31] MEDS ORDERED: INSULIN LISPRO 100 UNIT/ML SUBCUT ONE (14:52)
[2020-05-31] MEDS: SODIUM CHLORIDE 0.9% 1,000 ML IV SCH (18:17)
[2020-05-31 18:31] LABS: ABG HCO3 21.8 MMOL/L (20-26); ABG Oxygen Saturation 93.3 % (95-100); ABG PCO2 31.4 MM HG (35-48); ABG PH 7.419 (7.35-7.45); ABG PO2 73.2 MM HG (80-95); ABG TCO2 17.3 MMOL/L (23-27)
[2020-05-31 18:49] LABS: Basophils % 0.3 % (0.0-0.8); Hematocrit 43.7 VOL% (35.7-47.0); Hemoglobin 14.4 GM/DL (12.0-16.0); Immature Granulocytes % 0.4 %; Immature Granulocytes Absolute 0.03 #; Lymphocytes % 12.2 % (21.3-54.2); Mean Corpuscular Volume 84.5 FL (87-102); Mean Platelet Volume 9.8 FL (9.6-12.0); Monocytes % 6.6 % (1.7-12.7); Neutrophils % 80.5 % (38.7-73.9); Platelet Count 256 T/CUMM (130-400); Red Blood Count 5.17 MC/CUMM (3.8-5.5); Red Cell Distribution Width 14.6 % (9.3-17.3); White Blood Count 7.9 T/CUMM (4-12)
[2020-05-31 18:59] LABS: PT Patient Result 10.7 SECS (9.8-11.9); Partial Thromboplastin Time 26.3 SECS (23.9-33.8)
[2020-05-31 20:20] LABS: Albumin 2.9 G/DL (3.4-5.0); Bilirubin,Total 0.4 MG/DL (0.2-1.0); Total Protein 8.2 G/DL (6.4-8.3)
[2020-05-31] MEDS: oxyCODONE/ACETAMINOPHEN 5-325 MG TABLET PO PRN (20:45)
[2020-05-31] MEDS ORDERED: ATORVASTATIN 40 MG TABLET PO SCH (21:00)
[2020-05-31] MEDS ORDERED: INSULIN GLARGINE 100 UNIT/ML SUBCUT SCH (21:00)
[2020-05-31 21:18] LABS: Calcium 8.6 MG/DL (8.5-10.1); Osmolality,Calculated 285.4 MOS/KG (273-304)
[2020-05-31] MEDS ORDERED: AZITHROMYCIN INJ 500 MG in SODIUM CHLORIDE 0.9% 250 ML IV SCH (22:00)
[2020-05-31] MEDS: LINEZOLID INJ 600 MG in PREMIX 1 EACH IV SCH (22:30)
[2020-06-01] MEDS: ALBUTEROL INHALER 18 GM INH SCH ×6 (00:27→20:20)
[2020-06-01 03:53] LABS: Basophils % 0.2 % (0.0-0.8); Hematocrit 43.1 VOL% (35.7-47.0); Hemoglobin 14.6 GM/DL (12.0-16.0); Immature Granulocytes % 0.4 %; Immature Granulocytes Absolute 0.05 #; Lymphocytes # 1.3 10*3/uL (1.4-4.0); Mean Corpuscular HGB Conc 33.9 GM/DL (32-36); Mean Corpuscular Volume 82.6 FL (87-102); Mean Platelet Volume 9.9 FL (9.6-12.0); Monocytes % 6.8 % (1.7-12.7); Neutrophils % 82.6 % (38.7-73.9); Platelet Count 265 T/CUMM (130-400); Red Blood Count 5.22 MC/CUMM (3.8-5.5); Red Cell Distribution Width 14.6 % (9.3-17.3); White Blood Count 12.8 T/CUMM (4-12)
[2020-06-01 04:16] LABS: Calcium 8.5 MG/DL (8.5-10.1); Osmolality,Calculated 285.2 MOS/KG (273-304)
[2020-06-01 04:20] LABS: Albumin 2.8 G/DL (3.4-5.0); Bilirubin,Total 0.7 MG/DL (0.2-1.0); Calcium 8.5 MG/DL (8.5-10.1); Ferritin 301.4 ng/ml (8-252); Osmolality,Calculated 281.4 MOS/KG (273-304); Total Protein 7.6 G/DL (6.4-8.3)
[2020-06-01] MEDS: LEVOTHYROXINE 150 MCG TABLET PO SCH (05:54)
[2020-06-01] MEDS: hydrALAZINE 20 MG/1 ML VIAL IV PRN (05:55)
[2020-06-01] MEDS: ONDANSETRON 4 MG/2 ML VIAL IV PRN ×2 (06:46→07:11)
[2020-06-01] MEDS: NITROGLYCERIN SL 0.4 MG TABLET SL PRN ×2 (06:55→07:05)
[2020-06-01] MEDS ORDERED: MORPHINE 4 MG/1 ML VIAL ONE (06:58)
[2020-06-01] MEDS: PANTOPRAZOLE 40 MG TABLET PO SCH ×2 (07:15→08:36)
[2020-06-01] MEDS: BUMETANIDE 1 MG TABLET PO SCH ×2 (07:15→08:34)
[2020-06-01] MEDS: AZITHROMYCIN 250 MG TABLET PO SCH ×2 (07:15→08:37)
[2020-06-01] MEDS: ENOXAPARIN 40 MG/0.4 ML SYRINGE SUBCUT SCH ×2 (07:15→08:35)
[2020-06-01] MEDS: TICAGRELOR 90 MG TABLET PO SCH ×3 (07:15→20:20)
[2020-06-01] MEDS: ISOSORBIDE MONONITRATE 60 MG TABLET PO SCH ×2 (07:15→08:35)
[2020-06-01] MEDS: ASPIRIN EC 81 MG TABLET PO SCH ×2 (07:15→08:34)
[2020-06-01] MEDS: GABAPENTIN 600 MG TABLET PO SCH ×3 (07:15→20:22)
[2020-06-01] MEDS ORDERED: MORPHINE 4 MG/1 ML VIAL IV ONE (07:15)
[2020-06-01] MEDS: ALPRAZolam 0.25 MG TABLET PO PRN (07:52)
[2020-06-01] MEDS: METOPROLOL TARTRATE 50 MG TABLET PO SCH ×2 (08:31→20:22)
[2020-06-01] MEDS: INSULIN LISPRO 100 UNIT/ML SUBCUT SCH ×7 (08:52→20:21)
[2020-06-01] MEDS: cefTRIAXone 1,000 MG in SYRINGE 1 EACH IV SCH (08:52)
[2020-06-01] MEDS: amLODIPine 10 MG TABLET PO SCH (08:52)
[2020-06-01] MEDS: LINEZOLID INJ 600 MG in PREMIX 1 EACH IV SCH ×2 (08:54→21:19)
[2020-06-01 10:09] LABS: Troponin I < 0.015 NG/ML (0.00-0.045)
[2020-06-01] MEDS ORDERED: niCARdipine INJ 25 MG in SODIUM CHLORIDE 0.9% 240 ML IV SCH (10:30)
[2020-06-01] MEDS ORDERED: PROMETHAZINE INJ 25 MG in SODIUM CHLORIDE 0.9% 50 ML IV ONE (10:30)
[2020-06-01] MEDS ORDERED: diphenhydrAMINE 50 MG/1 ML VIAL IV ONE (11:06)
[2020-06-01] MEDS: niCARdipine INJ 25 MG in SODIUM CHLORIDE 0.9% 240 ML IV SCH ×2 (17:31→20:30)
[2020-06-01] MEDS: SODIUM CHLORIDE 0.9% 1,000 ML IV SCH (20:20)
[2020-06-01] MEDS: INSULIN GLARGINE 100 UNIT/ML SUBCUT SCH (20:22)
[2020-06-01] MEDS: ATORVASTATIN 40 MG TABLET PO SCH (20:22)
[2020-06-02] MEDS: niCARdipine INJ 25 MG in SODIUM CHLORIDE 0.9% 240 ML IV SCH (00:09)
[2020-06-02] MEDS: ALBUTEROL INHALER 18 GM INH SCH ×7 (00:30→23:04)
[2020-06-02] MEDS: niCARdipine INJ 50 MG in SODIUM CHLORIDE 0.9% 480 ML IV SCH ×6 (01:42→22:10)
[2020-06-02] MEDS: ONDANSETRON 4 MG/2 ML VIAL IV PRN ×2 (03:20→20:40)
[2020-06-02] MEDS: hydrALAZINE 20 MG/1 ML VIAL IV PRN ×2 (03:23→15:00)
[2020-06-02 03:46] LABS: Risk Ratio 3.78; VLDL CHOLESTEROL 93.4 MG/DL
[2020-06-02 03:48] LABS: Albumin 2.5 G/DL (3.4-5.0); Bilirubin,Total 0.6 MG/DL (0.2-1.0); Calcium 8.4 MG/DL (8.5-10.1); Ferritin 295.9 ng/ml (8-252); Total Protein 7.5 G/DL (6.4-8.3)
[2020-06-02 04:56] LABS: ABG HCO3 23.4 MMOL/L (20-26); ABG PCO2 28.7 MM HG (35-48); ABG PH 7.472 (7.35-7.45); ABG PO2 58.7 MM HG (80-95); ABG TCO2 17.2 MMOL/L (23-27); Allen Test Positive
[2020-06-02] MEDS: oxyCODONE/ACETAMINOPHEN 5-325 MG TABLET PO PRN ×2 (05:34→20:44)
[2020-06-02] MEDS: LEVOTHYROXINE 150 MCG TABLET PO SCH (06:38)
[2020-06-02] MEDS: cloNIDine 0.1 MG TABLET PO PRN ×2 (06:39→20:41)
[2020-06-02] MEDS: METOPROLOL TARTRATE 100 MG TABLET PO SCH ×2 (08:15→20:48)
[2020-06-02] MEDS: ISOSORBIDE MONONITRATE 60 MG TABLET PO SCH (08:15)
[2020-06-02] MEDS: INSULIN GLARGINE 100 UNIT/ML SUBCUT SCH ×2 (08:15→23:00)
[2020-06-02] MEDS: ASPIRIN EC 81 MG TABLET PO SCH (08:15)
[2020-06-02] MEDS: AZITHROMYCIN 250 MG TABLET PO SCH (08:15)
[2020-06-02] MEDS: PANTOPRAZOLE 40 MG TABLET PO SCH (08:15)
[2020-06-02] MEDS: ENOXAPARIN 40 MG/0.4 ML SYRINGE SUBCUT SCH (08:15)
[2020-06-02] MEDS: BUMETANIDE 1 MG TABLET PO SCH (08:15)
[2020-06-02] MEDS: GABAPENTIN 600 MG TABLET PO SCH ×2 (08:15→20:41)
[2020-06-02] MEDS: cefTRIAXone 1,000 MG in SYRINGE 1 EACH IV SCH (08:15)
[2020-06-02] MEDS: TICAGRELOR 90 MG TABLET PO SCH ×2 (08:15→20:41)
[2020-06-02] MEDS: INSULIN LISPRO 100 UNIT/ML SUBCUT SCH ×7 (08:15→23:00)
[2020-06-02] MEDS: amLODIPine 10 MG TABLET PO SCH (08:15)
[2020-06-02] MEDS ORDERED: METOPROLOL TARTRATE 50 MG TABLET ONE (08:41)
[2020-06-02] MEDS: LINEZOLID INJ 600 MG in PREMIX 1 EACH IV SCH ×2 (09:05→20:38)
[2020-06-02] MEDS: PROMETHAZINE 25 MG TABLET PO PRN ×2 (09:15→16:55)
[2020-06-02] MEDS: minoxidiL 2.5 MG TABLET PO SCH ×2 (11:11→20:42)
[2020-06-02] MEDS ORDERED: REMDESIVIR 200 MG in SODIUM CHLORIDE 0.9% 210 ML IV ONE (17:00)
[2020-06-02] MEDS: SODIUM CHLORIDE 0.9% 1,000 ML IV SCH (18:22)
[2020-06-02] MEDS: ALPRAZolam 0.25 MG TABLET PO PRN (20:40)
[2020-06-02] MEDS: ZALEPLON 5 MG CAPSULE PO PRN (20:41)
[2020-06-02] MEDS: ATORVASTATIN 40 MG TABLET PO SCH (20:51)
[2020-06-03 00:36] LABS: Specimen Source THROAT
[2020-06-03] MEDS: niCARdipine INJ 50 MG in SODIUM CHLORIDE 0.9% 480 ML IV SCH ×7 (02:39→21:12)
[2020-06-03] MEDS: ALBUTEROL INHALER 18 GM INH SCH ×5 (05:16→20:03)
[2020-06-03] MEDS: LEVOTHYROXINE 150 MCG TABLET PO SCH (05:38)
[2020-06-03] MEDS: SODIUM CHLORIDE 0.9% 1,000 ML IV SCH ×2 (05:43→19:17)
[2020-06-03 06:31] LABS: Albumin 2.3 G/DL (3.4-5.0); Bilirubin,Total 0.6 MG/DL (0.2-1.0); Calcium 8.1 MG/DL (8.5-10.1); Ferritin 339.3 ng/ml (8-252); Total Protein 7.1 G/DL (6.4-8.3)
[2020-06-03] MEDS: INSULIN LISPRO 100 UNIT/ML SUBCUT SCH ×7 (08:05→20:03)
[2020-06-03] MEDS: BUMETANIDE 1 MG TABLET PO SCH (08:29)
[2020-06-03] MEDS: TICAGRELOR 90 MG TABLET PO SCH ×2 (08:29→20:03)
[2020-06-03] MEDS: AZITHROMYCIN 250 MG TABLET PO SCH (08:29)
[2020-06-03] MEDS: minoxidiL 2.5 MG TABLET PO SCH ×3 (08:30→20:01)
[2020-06-03] MEDS: METOPROLOL TARTRATE 100 MG TABLET PO SCH ×2 (08:30→20:00)
[2020-06-03] MEDS: ASPIRIN EC 81 MG TABLET PO SCH (08:30)
[2020-06-03] MEDS: GABAPENTIN 600 MG TABLET PO SCH ×2 (08:30→20:00)
[2020-06-03] MEDS: ISOSORBIDE MONONITRATE 60 MG TABLET PO SCH (08:30)
[2020-06-03] MEDS: PANTOPRAZOLE 40 MG TABLET PO SCH (08:30)
[2020-06-03] MEDS: cefTRIAXone 1,000 MG in SYRINGE 1 EACH IV SCH (08:32)
[2020-06-03] MEDS: ENOXAPARIN 40 MG/0.4 ML SYRINGE SUBCUT SCH ×2 (08:32→20:04)
[2020-06-03] MEDS: INSULIN GLARGINE 100 UNIT/ML SUBCUT SCH ×2 (08:32→20:02)
[2020-06-03] MEDS: LINEZOLID INJ 600 MG in PREMIX 1 EACH IV SCH ×2 (08:33→21:13)
[2020-06-03] MEDS: ONDANSETRON 4 MG/2 ML VIAL IV PRN (08:35)
[2020-06-03 09:31] LABS: Basophils % 0.2 % (0.0-0.8); Hematocrit 37.1 VOL% (35.7-47.0); Hemoglobin 12.7 GM/DL (12.0-16.0); Immature Granulocytes % 1.3 %; Immature Granulocytes Absolute 0.16 #; Lymphocytes # 1.7 10*3/uL (1.4-4.0); Lymphocytes % 14.1 % (21.3-54.2); Mean Corpuscular HGB Conc 34.2 GM/DL (32-36); Mean Corpuscular Volume 82.1 FL (87-102); Mean Platelet Volume 10.5 FL (9.6-12.0); Monocytes % 4.9 % (1.7-12.7); Neutrophils % 79.5 % (38.7-73.9); Platelet Count 323 T/CUMM (130-400); Red Blood Count 4.52 MC/CUMM (3.8-5.5); Red Cell Distribution Width 14.6 % (9.3-17.3); White Blood Count 12.2 T/CUMM (4-12)
[2020-06-03] MEDS: PROMETHAZINE 25 MG TABLET PO PRN (15:33)
[2020-06-03] MEDS: cloNIDine 0.1 MG TABLET PO PRN (15:33)
[2020-06-03] MEDS: oxyCODONE/ACETAMINOPHEN 5-325 MG TABLET PO PRN (15:34)
[2020-06-03] MEDS: REMDESIVIR 100 MG in SODIUM CHLORIDE 0.9% 230 ML IV SCH (16:56)
[2020-06-03] MEDS ORDERED: DEXAMETHASONE 4 MG/1 ML VIAL IV ONE (18:20)
[2020-06-03] MEDS: ALPRAZolam 0.25 MG TABLET PO PRN (19:59)
[2020-06-03] MEDS: ATORVASTATIN 40 MG TABLET PO SCH (20:00)
[2020-06-03] MEDS: ZALEPLON 5 MG CAPSULE PO PRN (20:01)
[2020-06-04] MEDS: ALBUTEROL/IPRATROPIUM 3 ML NEB RESP TX SCH ×5 (01:18→15:30)
[2020-06-04] MEDS ORDERED: diphenhydrAMINE CAP 25 MG CAPSULE PO PRN (02:11)
[2020-06-04] MEDS: niCARdipine INJ 50 MG in SODIUM CHLORIDE 0.9% 480 ML IV SCH ×2 (02:41→07:57)
[2020-06-04 04:24] LABS: Basophils % 0.2 % (0.0-0.8); Hematocrit 36.3 VOL% (35.7-47.0); Hemoglobin 11.7 GM/DL (12.0-16.0); Immature Granulocytes % 1.7 %; Immature Granulocytes Absolute 0.22 #; Lymphocytes # 0.7 10*3/uL (1.4-4.0); Lymphocytes % 5.6 % (21.3-54.2); Mean Corpuscular HGB Conc 32.2 GM/DL (32-36); Mean Corpuscular Volume 85.8 FL (87-102); Mean Platelet Volume 9.8 FL (9.6-12.0); Monocytes % 1.5 % (1.7-12.7); Platelet Count 325 T/CUMM (130-400); Red Blood Count 4.23 MC/CUMM (3.8-5.5); Red Cell Distribution Width 14.6 % (9.3-17.3); White Blood Count 12.6 T/CUMM (4-12)
[2020-06-04 04:24] LABS: ABG Base Excess -7.9 MMOL/L (-2.5-2.5); ABG HCO3 14.2 MMOL/L (20-26); ABG Oxygen Saturation 82.6 % (95-100); ABG PCO2 21.3 MM HG (35-48); ABG PH 7.441 (7.35-7.45); ABG PO2 48.2 MM HG (80-95); ABG TCO2 14.8 MMOL/L (23-27); Allen Test Positive; Pt O2 Delivery Device Other
[2020-06-04 04:45] LABS: Albumin 2.1 G/DL (3.4-5.0); Bilirubin,Total 0.6 MG/DL (0.2-1.0); Calcium 7.9 MG/DL (8.5-10.1); Ferritin 302.6 ng/ml (8-252); Osmolality,Calculated 286.7 MOS/KG (273-304); Total Protein 7.1 G/DL (6.4-8.3)
[2020-06-04 05:10] LABS: Lymphocytes 2 % (20-55); Nucleated Red Blood Cells 1 (0-5); Platelet Estimate Adequate; Segmented Neutrophils 97 % (50-85); Total Cells Counted 100
[2020-06-04] MEDS: LEVOTHYROXINE 150 MCG TABLET PO SCH (05:35)
[2020-06-04] MEDS: oxyCODONE/ACETAMINOPHEN 5-325 MG TABLET PO PRN (06:58)
[2020-06-04] MEDS: ALPRAZolam 0.25 MG TABLET PO PRN ×2 (06:59→20:45)
[2020-06-04] MEDS ORDERED: FUROSEMIDE 100 MG/10 ML VIAL IV ONE (07:24)
[2020-06-04] MEDS ORDERED: metOLazone 5 MG TABLET PO ONE (07:26)
[2020-06-04] MEDS: ENOXAPARIN 40 MG/0.4 ML SYRINGE SUBCUT SCH (08:36)
[2020-06-04] MEDS: INSULIN GLARGINE 100 UNIT/ML SUBCUT SCH ×2 (08:37→20:46)
[2020-06-04] MEDS: INSULIN LISPRO 100 UNIT/ML SUBCUT SCH ×7 (08:38→20:46)
[2020-06-04] MEDS: DEXAMETHASONE 4 MG/1 ML VIAL IV SCH (08:39)
[2020-06-04] MEDS: minoxidiL 2.5 MG TABLET PO SCH ×2 (08:41→20:46)
[2020-06-04] MEDS: ISOSORBIDE MONONITRATE 60 MG TABLET PO SCH (08:41)
[2020-06-04] MEDS: ASPIRIN EC 81 MG TABLET PO SCH (08:41)
[2020-06-04] MEDS: PANTOPRAZOLE 40 MG TABLET PO SCH (08:41)
[2020-06-04] MEDS: METOPROLOL TARTRATE 100 MG TABLET PO SCH ×2 (08:42→20:46)
[2020-06-04] MEDS: GABAPENTIN 600 MG TABLET PO SCH ×2 (08:42→20:46)
[2020-06-04] MEDS: TICAGRELOR 90 MG TABLET PO SCH ×2 (08:42→20:46)
[2020-06-04] MEDS: ENOXAPARIN 60 MG/0.6 ML SYRINGE SUBCUT SCH (08:49)
[2020-06-04] MEDS: LINEZOLID INJ 600 MG in PREMIX 1 EACH IV SCH ×2 (10:11→21:50)
[2020-06-04] MEDS ORDERED: SODIUM CHLORIDE 0.9% 1,000 ML IV PRN (11:21)
[2020-06-04] MEDS: REMDESIVIR 100 MG in SODIUM CHLORIDE 0.9% 230 ML IV SCH (17:30)
[2020-06-04] MEDS: SODIUM CHLORIDE 0.9% 1,000 ML IV SCH (18:14)
[2020-06-04] MEDS: ALBUTEROL INHALER 18 GM INH SCH (19:55)
[2020-06-04] MEDS: ATORVASTATIN 40 MG TABLET PO SCH (20:46)
[2020-06-04] MEDS ORDERED: MORPHINE 4 MG/1 ML VIAL IV ONE (21:31)
[2020-06-05] MEDS: niCARdipine INJ 50 MG in SODIUM CHLORIDE 0.9% 480 ML IV SCH (02:53)
[2020-06-05] MEDS: cefTRIAXone 1,000 MG in SYRINGE 1 EACH IV SCH (03:29)
[2020-06-05 04:16] LABS: ABG HCO3 16.8 MMOL/L (20-26); ABG Oxygen Saturation 91.4 % (95-100); ABG PCO2 28.6 MM HG (35-48); ABG PH 7.387 (7.35-7.45); ABG PO2 69.9 MM HG (80-95); ABG TCO2 17.7 MMOL/L (23-27); Allen Test Positive; Pt O2 Delivery Device BIPAP
[2020-06-05] MEDS: ALBUTEROL INHALER 18 GM INH SCH ×2 (05:35→21:51)
[2020-06-05] MEDS: LEVOTHYROXINE 150 MCG TABLET PO SCH (05:43)
[2020-06-05 07:38] LABS: Basophils % 0.2 % (0.0-0.8); Hematocrit 34.1 VOL% (35.7-47.0); Hemoglobin 11.3 GM/DL (12.0-16.0); Immature Granulocytes Absolute 0.37 #; Lymphocytes # 0.8 10*3/uL (1.4-4.0); Lymphocytes % 4.4 % (21.3-54.2); Mean Corpuscular HGB Conc 33.1 GM/DL (32-36); Mean Corpuscular Volume 84.6 FL (87-102); Mean Platelet Volume 9.4 FL (9.6-12.0); Monocytes % 4.4 % (1.7-12.7); NRBC # 0.02 10*3/uL; Platelet Count 376 T/CUMM (130-400); Red Blood Count 4.03 MC/CUMM (3.8-5.5); Red Cell Distribution Width 14.6 % (9.3-17.3); White Blood Count 18.9 T/CUMM (4-12)
[2020-06-05 07:53] LABS: Calcium 8.5 MG/DL (8.5-10.1); Osmolality,Calculated 289.1 MOS/KG (273-304)
[2020-06-05 07:56] LABS: Lymphocytes 4 % (20-55); Platelet Estimate Adequate; Segmented Neutrophils 91 % (50-85); Total Cells Counted 100
[2020-06-05 07:57] LABS: Burr Cells Slight; Ovalocytes Slight
[2020-06-05 07:59] LABS: Albumin 2.3 G/DL (3.4-5.0); Bilirubin,Total 0.5 MG/DL (0.2-1.0); Calcium 8.5 MG/DL (8.5-10.1); Ferritin 290.4 ng/ml (8-252); Osmolality,Calculated 287.2 MOS/KG (273-304); Total Protein 7.4 G/DL (6.4-8.3)
[2020-06-05] MEDS: DEXAMETHASONE 4 MG/1 ML VIAL IV SCH (09:09)
[2020-06-05] MEDS: ALPRAZolam 0.25 MG TABLET PO PRN (09:09)
[2020-06-05] MEDS: INSULIN GLARGINE 100 UNIT/ML SUBCUT SCH ×2 (09:10→20:45)
[2020-06-05] MEDS: ENOXAPARIN 60 MG/0.6 ML SYRINGE SUBCUT SCH (09:10)
[2020-06-05] MEDS: PANTOPRAZOLE 40 MG TABLET PO SCH (09:11)
[2020-06-05] MEDS: METOPROLOL TARTRATE 100 MG TABLET PO SCH ×2 (09:11→20:45)
[2020-06-05] MEDS: minoxidiL 2.5 MG TABLET PO SCH ×2 (09:11→20:45)
[2020-06-05] MEDS: GABAPENTIN 600 MG TABLET PO SCH ×2 (09:11→20:45)
[2020-06-05] MEDS: ASPIRIN EC 81 MG TABLET PO SCH (09:12)
[2020-06-05] MEDS: TICAGRELOR 90 MG TABLET PO SCH ×2 (09:12→20:45)
[2020-06-05] MEDS: ISOSORBIDE MONONITRATE 60 MG TABLET PO SCH (09:12)
[2020-06-05] MEDS: INSULIN LISPRO 100 UNIT/ML SUBCUT SCH ×5 (09:22→18:44)
[2020-06-05] MEDS: LINEZOLID INJ 600 MG in PREMIX 1 EACH IV SCH (09:30)
[2020-06-05] MEDS ORDERED: ROCURONIUM 100 MG/10 ML VIAL IV ONE ×2 (11:32→11:51)
[2020-06-05] MEDS ORDERED: ETOMIDATE 20 MG/10 ML VIAL IV ONE ×2 (11:32→11:50)
[2020-06-05] MEDS: SODIUM BICARB INJ 50 MEQ in SODIUM CHLORIDE 0.45% 1,000 ML IV SCH (15:04)
[2020-06-05] MEDS: SODIUM CHLORIDE 0.9% 1,000 ML IV SCH (18:09)
[2020-06-05] MEDS: ATORVASTATIN 40 MG TABLET PO SCH (20:45)
[2020-06-06] MEDS: ALBUTEROL INHALER 18 GM INH SCH ×5 (00:09→20:20)
[2020-06-06] MEDS: LINEZOLID INJ 600 MG in PREMIX 1 EACH IV SCH ×3 (00:25→22:08)
[2020-06-06] MEDS: INSULIN LISPRO 100 UNIT/ML SUBCUT SCH ×4 (00:27→17:21)
[2020-06-06 01:31] VITALS: BP 144/58
[2020-06-06] MEDS: niCARdipine INJ 50 MG in SODIUM CHLORIDE 0.9% 480 ML IV SCH (01:44)
[2020-06-06 02:52] LABS: ABG HCO3 19.4 MMOL/L (20-26); ABG Oxygen Saturation 91.4 % (95-100); ABG PCO2 37.3 MM HG (35-48); ABG PH 7.325 (7.35-7.45); ABG TCO2 17.8 MMOL/L (23-27); Allen Test Positive; Pt O2 Delivery Device Ventilator
[2020-06-06] MEDS: cefTRIAXone 1,000 MG in SYRINGE 1 EACH IV SCH (03:19)
[2020-06-06] MEDS: SODIUM BICARB INJ 50 MEQ in SODIUM CHLORIDE 0.45% 1,000 ML IV SCH ×2 (04:05→14:36)
[2020-06-06 04:29] LABS: Basophils % 0.1 % (0.0-0.8); Hematocrit 30.6 VOL% (35.7-47.0); Hemoglobin 9.9 GM/DL (12.0-16.0); Immature Granulocytes % 1.9 %; Immature Granulocytes Absolute 0.39 #; Lymphocytes # 0.7 10*3/uL (1.4-4.0); Lymphocytes % 3.5 % (21.3-54.2); Mean Corpuscular HGB Conc 32.4 GM/DL (32-36); Mean Corpuscular Volume 86.2 FL (87-102); Mean Platelet Volume 9.6 FL (9.6-12.0); Monocytes % 4.6 % (1.7-12.7); NRBC # 0.03 10*3/uL; Neutrophils % 89.9 % (38.7-73.9); Platelet Count 386 T/CUMM (130-400); Red Blood Count 3.55 MC/CUMM (3.8-5.5); Red Cell Distribution Width 14.5 % (9.3-17.3); White Blood Count 20.2 T/CUMM (4-12)
[2020-06-06 04:54] LABS: Hypochromasia 1+; Lymphocytes 2 % (20-55); Platelet Estimate Adequate; Segmented Neutrophils 96 % (50-85); Total Cells Counted 100
[2020-06-06 05:02] LABS: Albumin 2.4 G/DL (3.4-5.0); Bilirubin,Total 0.6 MG/DL (0.2-1.0); Calcium 8.2 MG/DL (8.5-10.1); Ferritin 254.6 ng/ml (8-252); Osmolality,Calculated 297.4 MOS/KG (273-304); Total Protein 7.3 G/DL (6.4-8.3)
[2020-06-06] MEDS: LEVOTHYROXINE 150 MCG TABLET PO SCH (06:24)
[2020-06-06] MEDS: ASPIRIN CHEW 81 MG TABLET PO SCH (09:13)
[2020-06-06] MEDS: ISOSORBIDE MONONITRATE 60 MG TABLET PO SCH (09:14)
[2020-06-06] MEDS: TICAGRELOR 90 MG TABLET PO SCH ×2 (09:14→20:20)
[2020-06-06] MEDS: MULTIVITAMIN LIQUID (CENTRUM) 60 ML BOTTLE PO SCH (09:14)
[2020-06-06] MEDS: DEXAMETHASONE 4 MG/1 ML VIAL IV SCH (09:14)
[2020-06-06] MEDS: NIFEdipine 10 MG CAPSULE PO SCH ×3 (09:15→20:21)
[2020-06-06] MEDS: ENOXAPARIN 60 MG/0.6 ML SYRINGE SUBCUT SCH (09:15)
[2020-06-06] MEDS: minoxidiL 2.5 MG TABLET PO SCH ×2 (09:15→20:21)
[2020-06-06] MEDS: INSULIN GLARGINE 100 UNIT/ML SUBCUT SCH ×2 (09:15→20:20)
[2020-06-06] MEDS: GABAPENTIN 600 MG TABLET PO SCH ×2 (09:15→20:21)
[2020-06-06] MEDS: METOPROLOL TARTRATE 100 MG TABLET PO SCH ×2 (09:15→20:21)
[2020-06-06] MEDS: PANTOPRAZOLE 40 MG VIAL IV SCH (09:15)
[2020-06-06] MEDS: ATORVASTATIN 40 MG TABLET PO SCH (20:21)
[2020-06-07] MEDS: INSULIN LISPRO 100 UNIT/ML SUBCUT SCH ×4 (00:42→18:20)
[2020-06-07] MEDS: ALBUTEROL INHALER 18 GM INH SCH ×4 (01:46→20:10)
[2020-06-07] MEDS: niCARdipine INJ 50 MG in SODIUM CHLORIDE 0.9% 480 ML IV SCH (01:47)
[2020-06-07] MEDS: cefTRIAXone 1,000 MG in SYRINGE 1 EACH IV SCH (03:29)
[2020-06-07] MEDS: SODIUM BICARB INJ 50 MEQ in SODIUM CHLORIDE 0.45% 1,000 ML IV SCH ×3 (04:27→14:56)
[2020-06-07 04:46] LABS: Basophils % 0.1 % (0.0-0.8); Hematocrit 27.7 VOL% (35.7-47.0); Hemoglobin 9.3 GM/DL (12.0-16.0); Immature Granulocytes Absolute 0.42 #; Lymphocytes # 0.8 10*3/uL (1.4-4.0); Lymphocytes % 4.1 % (21.3-54.2); Mean Corpuscular HGB Conc 33.6 GM/DL (32-36); Mean Corpuscular Volume 83.7 FL (87-102); Mean Platelet Volume 9.6 FL (9.6-12.0); NRBC # 0.02 10*3/uL; Neutrophils % 88.8 % (38.7-73.9); Platelet Count 350 T/CUMM (130-400); Red Blood Count 3.31 MC/CUMM (3.8-5.5); Red Cell Distribution Width 14.2 % (9.3-17.3); White Blood Count 20.5 T/CUMM (4-12)
[2020-06-07 05:10] LABS: Calcium 7.7 MG/DL (8.5-10.1); Osmolality,Calculated 305.4 MOS/KG (273-304)
[2020-06-07 05:12] LABS: Burr Cells Slight; Hypochromasia 1+; Lymphocytes 4 % (20-55); Ovalocytes Slight; Platelet Estimate Adequate; Segmented Neutrophils 90 % (50-85); Total Cells Counted 100
[2020-06-07 05:33] LABS: ABG Base Excess -5.6 MMOL/L (-2.5-2.5); ABG HCO3 19.7 MMOL/L (20-26); ABG Oxygen Saturation 92.7 % (95-100); ABG PCO2 42.4 MM HG (35-48); ABG PH 7.295 (7.35-7.45); ABG PO2 74.7 MM HG (80-95); ABG TCO2 19.3 MMOL/L (23-27); Allen Test Positive; Pt O2 Delivery Device Ventilator
[2020-06-07] MEDS: LEVOTHYROXINE 150 MCG TABLET PO SCH (06:19)
[2020-06-07] MEDS: LINEZOLID INJ 600 MG in PREMIX 1 EACH IV SCH ×2 (08:40→21:39)
[2020-06-07] MEDS: TICAGRELOR 90 MG TABLET PO SCH ×2 (08:44→20:45)
[2020-06-07] MEDS: ASPIRIN CHEW 81 MG TABLET PO SCH (08:44)
[2020-06-07] MEDS: MULTIVITAMIN LIQUID (CENTRUM) 60 ML BOTTLE PO SCH (08:44)
[2020-06-07] MEDS: minoxidiL 2.5 MG TABLET PO SCH ×2 (08:45→20:45)
[2020-06-07] MEDS: ISOSORBIDE MONONITRATE 60 MG TABLET PO SCH (08:45)
[2020-06-07] MEDS: METOPROLOL TARTRATE 100 MG TABLET PO SCH ×2 (08:45→20:45)
[2020-06-07] MEDS: ENOXAPARIN 60 MG/0.6 ML SYRINGE SUBCUT SCH (08:45)
[2020-06-07] MEDS: PANTOPRAZOLE 40 MG VIAL IV SCH (08:45)
[2020-06-07] MEDS: INSULIN GLARGINE 100 UNIT/ML SUBCUT SCH ×2 (08:45→20:45)
[2020-06-07] MEDS: GABAPENTIN 600 MG TABLET PO SCH ×2 (08:45→20:45)
[2020-06-07] MEDS: DEXAMETHASONE 4 MG/1 ML VIAL IV SCH (08:46)
[2020-06-07] MEDS: NIFEdipine 10 MG CAPSULE PO SCH (10:25)
[2020-06-07] MEDS: MICAFUNGIN 100 MG in SODIUM CHLORIDE 0.9% 100 ML IV SCH (14:30)
[2020-06-07] MEDS ORDERED: HEPARIN LOCK FLUSH 500 UNIT/5 ML SYRINGE IV ONE (17:07)
[2020-06-07] MEDS: ATORVASTATIN 40 MG TABLET PO SCH (20:45)
[2020-06-08] MEDS: INSULIN LISPRO 100 UNIT/ML SUBCUT SCH ×4 (00:17→17:56)
[2020-06-08] MEDS: ALBUTEROL INHALER 18 GM INH SCH ×3 (02:00→21:14)
[2020-06-08] MEDS: niCARdipine INJ 50 MG in SODIUM CHLORIDE 0.9% 480 ML IV SCH (02:15)
[2020-06-08] MEDS: SODIUM BICARB INJ 50 MEQ in SODIUM CHLORIDE 0.45% 1,000 ML IV SCH ×4 (02:15→21:14)
[2020-06-08] MEDS: cefTRIAXone 1,000 MG in SYRINGE 1 EACH IV SCH (03:22)
[2020-06-08 03:54] LABS: Basophils % 0.2 % (0.0-0.8); Hematocrit 25.1 VOL% (35.7-47.0); Hemoglobin 8.4 GM/DL (12.0-16.0); Immature Granulocytes % 2.5 %; Immature Granulocytes Absolute 0.46 #; Lymphocytes # 0.8 10*3/uL (1.4-4.0); Lymphocytes % 4.2 % (21.3-54.2); Mean Corpuscular HGB Conc 33.5 GM/DL (32-36); Mean Corpuscular Volume 84.5 FL (87-102); Mean Platelet Volume 9.5 FL (9.6-12.0); Monocytes % 3.6 % (1.7-12.7); NRBC # 0.03 10*3/uL; Neutrophils % 89.5 % (38.7-73.9); Platelet Count 301 T/CUMM (130-400); Red Blood Count 2.97 MC/CUMM (3.8-5.5); Red Cell Distribution Width 13.9 % (9.3-17.3); White Blood Count 18.5 T/CUMM (4-12)
[2020-06-08 04:23] LABS: Calcium 7.5 MG/DL (8.5-10.1); Osmolality,Calculated 304.5 MOS/KG (273-304)
[2020-06-08 05:02] LABS: ABG Base Excess -4.1 MMOL/L (-2.5-2.5); ABG HCO3 20.9 MMOL/L (20-26); ABG Oxygen Saturation 89.4 % (95-100); ABG PCO2 47.3 MM HG (35-48); ABG PH 7.289 (7.35-7.45); ABG PO2 66.5 MM HG (80-95); ABG TCO2 20.7 MMOL/L (23-27); Allen Test Positive; Pt O2 Delivery Device Ventilator
[2020-06-08] MEDS: LEVOTHYROXINE 150 MCG TABLET PO SCH (05:46)
[2020-06-08 06:38] LABS: Lymphocytes 5 % (20-55); Metamyelocytes 1 %; Myelocytes 1 %; Segmented Neutrophils 91 % (50-85); Total Cells Counted 100
[2020-06-08 06:40] LABS: Burr Cells Few; Hypochromasia 2+; Ovalocytes Few; Platelet Estimate Normal; Polychromasia Slight; Schistocytes Slight
[2020-06-08] MEDS: ENOXAPARIN 60 MG/0.6 ML SYRINGE SUBCUT SCH (08:48)
[2020-06-08] MEDS: ISOSORBIDE MONONITRATE 60 MG TABLET PO SCH (08:49)
[2020-06-08] MEDS: GABAPENTIN 600 MG TABLET PO SCH (08:49)
[2020-06-08] MEDS: minoxidiL 2.5 MG TABLET PO SCH ×2 (08:49→21:15)
[2020-06-08] MEDS: TICAGRELOR 90 MG TABLET PO SCH ×2 (08:49→21:14)
[2020-06-08] MEDS: INSULIN GLARGINE 100 UNIT/ML SUBCUT SCH ×2 (08:50→21:14)
[2020-06-08] MEDS: DEXAMETHASONE 4 MG/1 ML VIAL IV SCH (08:50)
[2020-06-08] MEDS: METOPROLOL TARTRATE 100 MG TABLET PO SCH ×2 (08:50→21:15)
[2020-06-08] MEDS: PANTOPRAZOLE 40 MG VIAL IV SCH (08:50)
[2020-06-08] MEDS: ASPIRIN CHEW 81 MG TABLET PO SCH (08:50)
[2020-06-08] MEDS: MULTIVITAMIN LIQUID (CENTRUM) 60 ML BOTTLE PO SCH (08:57)
[2020-06-08] MEDS: LINEZOLID INJ 600 MG in PREMIX 1 EACH IV SCH (09:26)
[2020-06-08 12:15] LABS: Hepatitis B Core IgM Quant 0.17 Index; Hepatitis B Surface Ag Quant < 0.10 Index; Hepatitis B Surface Ag Result Negative (Negative); Hepatitis C Virus Ab Quant 0.06 Index; Hepatitis C Virus Ab Result Negative (Negative)
[2020-06-08] MEDS: ceFAZolin 1,000 MG in SYRINGE 1 EACH IV SCH ×2 (13:43→20:45)
[2020-06-08] MEDS: MICAFUNGIN 100 MG in SODIUM CHLORIDE 0.9% 100 ML IV SCH (15:30)
[2020-06-08] MEDS: GABAPENTIN 300 MG CAPSULE PO SCH (21:15)
[2020-06-08] MEDS: ATORVASTATIN 40 MG TABLET PO SCH (21:15)
[2020-06-08] MEDS: ACETAMINOPHEN 325 MG TABLET PO PRN (21:18)
[2020-06-09] MEDS: INSULIN LISPRO 100 UNIT/ML SUBCUT SCH ×4 (01:17→17:21)
[2020-06-09] MEDS: ALBUTEROL INHALER 18 GM INH SCH ×4 (01:18→20:54)
[2020-06-09] MEDS: niCARdipine INJ 50 MG in SODIUM CHLORIDE 0.9% 480 ML IV SCH (01:19)
[2020-06-09] MEDS: SODIUM BICARB INJ 50 MEQ in SODIUM CHLORIDE 0.45% 1,000 ML IV SCH ×4 (01:27→17:22)
[2020-06-09] MEDS: ceFAZolin 1,000 MG in SYRINGE 1 EACH IV SCH ×3 (04:15→20:40)
[2020-06-09 04:40] LABS: ABG Base Excess -0.3 MMOL/L (-2.5-2.5); ABG HCO3 24.2 MMOL/L (20-26); ABG Oxygen Saturation 98.8 % (95-100); ABG PCO2 48.2 MM HG (35-48); ABG PH 7.335 (7.35-7.45); ABG TCO2 24.3 MMOL/L (23-27); Allen Test Positive; Pt O2 Delivery Device Ventilator
[2020-06-09 05:46] LABS: Basophils % 0.2 % (0.0-0.8); Hematocrit 22.7 VOL% (35.7-47.0); Hemoglobin 7.7 GM/DL (12.0-16.0); Immature Granulocytes % 2.7 %; Immature Granulocytes Absolute 0.46 #; Lymphocytes # 1.2 10*3/uL (1.4-4.0); Lymphocytes % 6.7 % (21.3-54.2); Mean Corpuscular HGB Conc 33.9 GM/DL (32-36); Mean Corpuscular Volume 83.8 FL (87-102); Mean Platelet Volume 10.2 FL (9.6-12.0); Monocytes % 3.2 % (1.7-12.7); NRBC # 0.04 10*3/uL; Neutrophils % 87.2 % (38.7-73.9); Platelet Count 275 T/CUMM (130-400); Red Blood Count 2.71 MC/CUMM (3.8-5.5); Red Cell Distribution Width 13.9 % (9.3-17.3); White Blood Count 17.3 T/CUMM (4-12)
[2020-06-09 06:00] LABS: Calcium 8.1 MG/DL (8.5-10.1); Osmolality,Calculated 293.2 MOS/KG (273-304)
[2020-06-09] MEDS: LEVOTHYROXINE 150 MCG TABLET PO SCH (06:15)
[2020-06-09] MEDS: PANTOPRAZOLE 40 MG VIAL IV SCH (08:32)
[2020-06-09] MEDS: ISOSORBIDE MONONITRATE 60 MG TABLET PO SCH (08:32)
[2020-06-09] MEDS: DEXAMETHASONE 4 MG/1 ML VIAL IV SCH (08:32)
[2020-06-09] MEDS: TICAGRELOR 90 MG TABLET PO SCH ×2 (08:32→20:55)
[2020-06-09] MEDS: ENOXAPARIN 60 MG/0.6 ML SYRINGE SUBCUT SCH (08:33)
[2020-06-09] MEDS: MULTIVITAMIN LIQUID (CENTRUM) 60 ML BOTTLE PO SCH (08:33)
[2020-06-09] MEDS: INSULIN GLARGINE 100 UNIT/ML SUBCUT SCH ×2 (08:33→20:55)
[2020-06-09] MEDS: ASPIRIN CHEW 81 MG TABLET PO SCH (08:33)
[2020-06-09] MEDS: METOPROLOL TARTRATE 100 MG TABLET PO SCH ×2 (08:33→20:55)
[2020-06-09] MEDS: GABAPENTIN 300 MG CAPSULE PO SCH ×2 (08:33→20:55)
[2020-06-09] MEDS: minoxidiL 2.5 MG TABLET PO SCH (09:26)
[2020-06-09] MEDS: MICAFUNGIN 100 MG in SODIUM CHLORIDE 0.9% 100 ML IV SCH (15:43)
[2020-06-09] MEDS: ATORVASTATIN 40 MG TABLET PO SCH (20:55)
[2020-06-10] MEDS: INSULIN LISPRO 100 UNIT/ML SUBCUT SCH ×2 (00:17→05:05)
[2020-06-10] MEDS: ALBUTEROL INHALER 18 GM INH SCH ×2 (00:48→06:34)
[2020-06-10] MEDS: niCARdipine INJ 50 MG in SODIUM CHLORIDE 0.9% 480 ML IV SCH (00:48)
[2020-06-10] MEDS: ACETAMINOPHEN 325 MG TABLET PO PRN (00:51)
[2020-06-10 04:17] LABS: ABG Base Excess 1.9 MMOL/L (-2.5-2.5); ABG Oxygen Saturation 91.4 % (95-100); ABG PH 7.381 (7.35-7.45); ABG PO2 64.8 MM HG (80-95); ABG TCO2 25.7 MMOL/L (23-27)
[2020-06-10 04:28] LABS: Basophils % 0.1 % (0.0-0.8); Hematocrit 22.2 VOL% (35.7-47.0); Hemoglobin 7.2 GM/DL (12.0-16.0); Immature Granulocytes % 3.7 %; Immature Granulocytes Absolute 0.66 #; Lymphocytes % 5.8 % (21.3-54.2); Mean Corpuscular HGB Conc 32.4 GM/DL (32-36); Mean Corpuscular Volume 85.4 FL (87-102); Monocytes % 4.3 % (1.7-12.7); NRBC # 0.08 10*3/uL; Neutrophils % 86.1 % (38.7-73.9); Platelet Count 244 T/CUMM (130-400); Red Cell Distribution Width 13.8 % (9.3-17.3); White Blood Count 17.8 T/CUMM (4-12)
[2020-06-10] MEDS: ceFAZolin 1,000 MG in SYRINGE 1 EACH IV SCH (04:30)
[2020-06-10 04:43] LABS: Calcium 8.2 MG/DL (8.5-10.1)
[2020-06-10 04:51] LABS: Band Neutrophils 1 % (0-10); Lymphocytes 4 % (20-55); Platelet Estimate Adequate; Segmented Neutrophils 91 % (50-85); Total Cells Counted 100
[2020-06-10 04:52] LABS: Hypochromasia 1+
[2020-06-10] MEDS: LEVOTHYROXINE 150 MCG TABLET PO SCH (06:34)
[2020-06-10] MEDS: INSULIN GLARGINE 100 UNIT/ML SUBCUT SCH (08:30)
[2020-06-10] MEDS: PANTOPRAZOLE 40 MG VIAL IV SCH (08:30)
[2020-06-10] MEDS: GABAPENTIN 300 MG CAPSULE PO SCH (08:30)
[2020-06-10] MEDS: ISOSORBIDE MONONITRATE 60 MG TABLET PO SCH (08:30)
[2020-06-10] MEDS: ENOXAPARIN 60 MG/0.6 ML SYRINGE SUBCUT SCH (08:30)
[2020-06-10] MEDS: ASPIRIN CHEW 81 MG TABLET PO SCH (08:30)
[2020-06-10] MEDS: MULTIVITAMIN LIQUID (CENTRUM) 60 ML BOTTLE PO SCH (08:30)
[2020-06-10] MEDS: METOPROLOL TARTRATE 100 MG TABLET PO SCH (08:30)
[2020-06-10] MEDS: TICAGRELOR 90 MG TABLET PO SCH (08:30)
[2020-06-10] MEDS: DEXAMETHASONE 4 MG/1 ML VIAL IV SCH (08:32)
== END 2020-06-10 09:27 | disposition expired | DRG 207 ==
LOC: N.ED 20:46 → N.EDINP 05-31 00:38 → SUATTDRO 05-31 00:38 → N.2E 05-31 00:54 → N.CC 05-31 17:56
PROVIDERS: ADMIT Family Medicine; ATTEND Internal Medicine